=== PATIENT | male | born 1940 | race Caucasian/White ===

== ENCOUNTER → 2016-11-22 | Outpatient (CLI) | payer OTHER ==
[~2016-11-22] MED LIST: AMLO-110 PO; ASPCH81X PO; CHOL100010 PO; FAMO40TA6 PO; FINA5TAB PO; GABA-113 PO; GLCSR500 PO; INDA1TAB3 PO; LEVO25TA5 PO; MELO7.5T5 PO; MOME50SP5 NAE; MONT1TAB3 PO; MULT-506 PO; NEBI20TA2 PO; NXM/40 PO; TAMS0.4C38 PO
[2016-11-22 12:22] LABS: BASO % 0.5 %; BASO ABS # 0.03 K/uL (0-0.2); COMPLETE YES; EOS % 4.1 %; HEMATOCRIT 43.2 % (42-52); IG% 0.2 %; LYMPH % 24.4 %; LYMPH ABS # 1.59 K/uL (1.2-3.4); MEAN CORPUSCULAR HEMOGLOBIN 30.4 pg (25-34); MEAN CORPUSCULAR HGB CONC 33.8 g/dl (32-36); MEAN PLATELET VOLUME 12.3 fL (7.4-10.4); MONO % 10.3 %; NEUT % 60.5 %; PLATELET COUNT 216 K/uL (130-400); WHITE BLOOD COUNT 6.51 K/uL (4.8-10.8)
[2016-11-22 12:39] LABS: ESTIMATED AVERAGE GLUCOSE 146 mg/dl; HA1C FLAG Normal (Normal)
[2016-11-22 13:02] LABS: ALT/SGPT 24 U/L (12-78); AST/SGOT 16 U/L (15-37); BLOOD UREA NITROGEN 17 mg/dl (7-18); BUN/CREATININE RATIO 18.4 (10-20); CALCIUM 8.8 mg/dl (8.5-10.1); CARBON DIOXIDE 32 mmol/L (21-32); CHLORIDE 105 mmol/L (98-107); GLUCOSE 137 mg/dl (70-99); POTASSIUM 3.8 mmol/L (3.5-5.1); SODIUM 141 mmol/L (136-145)
[2016-11-22 13:11] LABS: ALB/GLOB RATIO 1.1 (0.9-2); ALKALINE PHOSPHATASE 55 U/L (45-117); CHOLESTEROL 151 mg/dl (0-200); CHOLESTEROL/HDL RATIO 3.3; HDL CHOLESTEROL 46 mg/dl; LDL CHOLESTEROL CALCULATED 86 mg/dl; PROSTATE SPECIFIC ANTIGEN 0.316 ng/ml (0.000-4.000); TRIGLYCERIDES 95 mg/dl (0-150); VERY LOW DENSITY LIPOPROT CALC 19 mg/dl
--- NOTE | 2016-11-26 09:54 | CODING QUERY MEDICAL NECESSITY ---
SUPPORTING DIAGNOSIS NEEDED A supporting diagnosis is required for the test/procedure performed on this patient in order for us to be reimbursed by the patient's insurance. Please provide a supporting diagnosis for the following test/procedure listed below next to the test name along with your signature. *If there is no additional diagnosis for this patient that would support the following test/procedure please document that below next to the test/procedure. Test(s)/Procedure(s) that require a supporting diagnosis: DOS 11/22 * PSA DIAGNOSIS: Provider Signature: Date: Thank you Jessy Ludwig Health Information Management Once completed, please kindly fax back to [phone] For questions please call [phone]
== END | disposition home or self-care (01) ==
LOC: C.LABPBG 08:36
PROVIDERS: ATTEND Internal Medicine
DX: K44.9 Diaphragmatic hernia without obstruction or gangrene (principal); E11.9 Type 2 diabetes mellitus without complications; E03.9 Hypothyroidism, unspecified; N40.1 Benign prostatic hyperplasia with lower urinary tract symptoms

== ENCOUNTER → 2017-05-23 | Outpatient (CLI) | payer OTHER ==
[2017-05-23 12:21] LABS: ALT/SGPT 20 U/L (12-78); BLOOD UREA NITROGEN 16 mg/dl (7-18); BUN/CREATININE RATIO 16.8 (10-20); CALCIUM 9.5 mg/dl (8.5-10.1); CARBON DIOXIDE 28 mmol/L (21-32); CHLORIDE 103 mmol/L (98-107); CREATININE 0.97 mg/dl (0.60-1.40); GLUCOSE 133 mg/dl (70-99); POTASSIUM 3.9 mmol/L (3.5-5.1); SODIUM 139 mmol/L (136-145)
[2017-05-23 12:31] LABS: ALB/GLOB RATIO 1.1 (0.9-2); ALKALINE PHOSPHATASE 54 U/L (45-117); AST/SGOT 15 U/L (15-37)
[2017-05-23 12:41] LABS: ESTIMATED AVERAGE GLUCOSE 140 mg/dl; HA1C FLAG Normal (Normal)
== END | disposition home or self-care (01) ==
LOC: C.LABPBG 08:46
PROVIDERS: ATTEND Internal Medicine
DX: I10 Essential (primary) hypertension (principal); E03.9 Hypothyroidism, unspecified; E11.9 Type 2 diabetes mellitus without complications

== ENCOUNTER → 2017-08-04 | Outpatient (CLI) | payer OTHER ==
--- NOTE | 2017-08-04 09:24 | DIAGNOSTIC IMAGING REPORT ---
ABDOMEN COMPLETE (US) HISTORY: Pain. Nausea. ABD BLOATING,GAS. COMPARISON: None. FINDINGS: Pancreas: The pancreas demonstrates a normal echotexture. Liver: Fatty infiltration Gallbladder: No gallbladder wall thickening. No gallstones. CBD: 7 mm Kidneys: Right kidney is negative for hydronephrosis. 4 cm mid pole cyst. Left kidney demonstrates a maximum dimension 12 cm. No evidence for hydronephrosis. Spleen: Normal in size. Aorta: Normal in caliber. IVC: Patent. IMPRESSION: 1. Mild fatty infiltration of liver. 2. 4 cm mid pole right renal cyst. 3. Otherwise normal study. The above report was generated using voice recognition software. It may contain grammatical, syntax or spelling errors. Electronically signed by: Fadi Gonzalez M.D. 08/04/2017 9:23 AM Dictated Date/Time: 08/04/2017 9:21 AM
== END | disposition home or self-care (01) ==
LOC: C.ULTRBC 08:22
PROVIDERS: ATTEND Internal Medicine
DX: R14.0 Abdominal distension (gaseous) (principal); R14.3 Flatulence; N28.1 Cyst of kidney, acquired; K76.0 Fatty (change of) liver, not elsewhere classified

== ENCOUNTER → 2017-12-12 | Outpatient (CLI) | payer OTHER ==
[2017-12-12 12:32] LABS: BASO % 0.5 %; BASO ABS # 0.03 K/uL (0-0.2); EOS % 3.4 %; HEMATOCRIT 43.9 % (42-52); HEMOGLOBIN 15.3 g/dL (14.0-18.0); IG# 0.01 K/uL (0.00-0.02); LYMPH % 31.4 %; LYMPH ABS # 1.86 K/uL (1.2-3.4); MEAN CELL VOLUME 88.5 fL (80-100); MEAN CORPUSCULAR HEMOGLOBIN 30.8 pg (25-34); MEAN CORPUSCULAR HGB CONC 34.9 g/dl (32-36); MEAN PLATELET VOLUME 11.8 fL (7.4-10.4); MONO % 9.6 %; MONO ABS # 0.57 K/uL (0.11-0.59); NEUT % 54.9 %; NEUT ABS # 3.25 K/uL (1.4-6.5); PLATELET COUNT 194 K/uL (130-400); RED CELL DISTRIBUTION WIDTH CV 13.5 % (11.5-14.5); RED CELL DISTRIBUTION WIDTH SD 44.2 fL (36.4-46.3); WHITE BLOOD COUNT 5.92 K/uL (4.8-10.8)
[2017-12-12 17:21] LABS: ALT/SGPT 29 U/L (12-78); AST/SGOT 21 U/L (15-37); BLOOD UREA NITROGEN 13 mg/dl (7-18); CARBON DIOXIDE 28 mmol/L (21-32); CHOLESTEROL 179 mg/dl (0-200); CREATININE 0.92 mg/dl (0.60-1.40); GLUCOSE 124 mg/dl (70-99); POTASSIUM 3.5 mmol/L (3.5-5.1); SODIUM 136 mmol/L (136-145)
[2017-12-12 17:31] LABS: ALKALINE PHOSPHATASE 58 U/L (45-117); LDL CHOLESTEROL CALCULATED 111 mg/dl; TOTAL PROTEIN 7.7 gm/dl (6.4-8.2)
[2017-12-13 06:31] LABS: HEMOGLOBIN A1C 6.8 % (4.5-5.6)
== END | disposition home or self-care (01) ==
LOC: C.LABPBG 11:15
PROVIDERS: ATTEND Internal Medicine
DX: I10 Essential (primary) hypertension (principal); E11.9 Type 2 diabetes mellitus without complications; E03.9 Hypothyroidism, unspecified

== ENCOUNTER → 2018-03-13 | Outpatient (CLI) | payer OTHER ==
[~2018-03-13] MED LIST changes: -AMLO-110 PO; +AMLO5TAB3 PO
[2018-03-13 17:54] LABS: BASO % 0.2 %; BASO ABS # 0.02 K/uL (0-0.2); EOS % 1.3 %; EOS ABS # 0.11 K/uL (0-0.5); HEMATOCRIT 40.9 % (42-52); HEMOGLOBIN 14.4 g/dL (14.0-18.0); IG# 0.03 K/uL (0.00-0.02); LYMPH % 26.4 %; LYMPH ABS # 2.18 K/uL (1.2-3.4); MEAN CELL VOLUME 88.9 fL (80-100); MEAN CORPUSCULAR HEMOGLOBIN 31.3 pg (25-34); MEAN CORPUSCULAR HGB CONC 35.2 g/dl (32-36); MEAN PLATELET VOLUME 11.7 fL (7.4-10.4); MONO % 10.2 %; MONO ABS # 0.84 K/uL (0.11-0.59); NEUT % 61.5 %; NEUT ABS # 5.07 K/uL (1.4-6.5); PLATELET COUNT 245 K/uL (130-400); RED CELL DISTRIBUTION WIDTH CV 13.6 % (11.5-14.5); RED CELL DISTRIBUTION WIDTH SD 44.1 fL (36.4-46.3); WHITE BLOOD COUNT 8.25 K/uL (4.8-10.8)
[2018-03-14 06:00] LABS: HEMOGLOBIN A1C 6.8 % (4.5-5.6)
--- NOTE | 2018-03-27 08:04 | CODING QUERY NO DIAGNOSIS ---
TREATMENT RENDERED WITHOUT A DIAGNOSIS To promote full compliance with coding requirements relating to patient care, physician participation is requested in all cases of agri business agent uncertainty. Please assist us with providing a diagnosis/symptom for the test(s) below: A diagnosis/symptom was not documented on your Order. A valid diagnosis/symptom is required to bill all insurances. Please remember that we are unable to code a diagnosis of rule out, probable, possible, questionable, or suspected. Tests that require a diagnosis: DOS: 03/13/18 * CBC W/ AUTO DIFF DIAGNOSIS: * IMMUNOGLOBULIN G,A,M DIAGNOSIS: * IMMUNOGLOBULIN D DIAGNOSIS: * IGG SUBCLASSES DIAGNOSIS: Provider Signature: Date: Thank you Melissa Dillon Health Information Management Once completed, please kindly fax back to [phone] For questions please call [phone]
== END | disposition home or self-care (01) ==
LOC: C.LABPBG 14:52
PROVIDERS: ATTEND Physician Assistant
DX: E11.9 Type 2 diabetes mellitus without complications (principal)

== ENCOUNTER 2023-06-07 11:40 | Observation (INO) ==
[~2023-06-07 11:40] MED LIST changes: -AMLO5TAB3 PO; -ASPCH81X PO; -CHOL100010 PO; -FAMO40TA6 PO; -FINA5TAB PO; -GABA-113 PO; -GLCSR500 PO; -INDA1TAB3 PO; -LEVO25TA5 PO; +LIDOCAINE 1% LOCAL 20 ML VIAL ONE; -MELO7.5T5 PO; -MOME50SP5 NAE; -MONT1TAB3 PO; -MULT-506 PO; -NEBI20TA2 PO; -NXM/40 PO; -TAMS0.4C38 PO; +VANCOMYCIN HCL 1000MG/20ML VIAL ONE; +WATER, STERILE FOR INJ 10 ML VIAL ONE
--- NOTE | 2023-06-07 12:35 | History & Physical Bridge Note ---
Date of Service June 07, 2023 History & Physical Bridge Note I have examined the patient, reviewed the History & Physical and in the interval since the performance of the History & Physical I have noted the following changes of clinical significance: no changes noted. I reviewed the indications, procedure, risks and alternatives with the patient, and answered all questions. Patient understands and agrees to the procedure. Consent obtained. I also reviewed the risks and use of sedation, patient understands and consent obtained.
[2023-06-07] MEDS ORDERED: CLINDAMYCIN 600 MG/D5W 50 ML BAG IV ONE (12:38)
[2023-06-07] MEDS ORDERED: MIDAZOLAM HCL 5 MG/ML 1 ML VIAL ONE (12:39)
[2023-06-07] MEDS ORDERED: fentaNYL citrate PF 100 MCG/2 ML VIAL ONE (12:39)
--- NOTE | 2023-06-07 12:46 | Pre Anesthesia Assessment ---
Date of Service June 07, 2023 Pre Sedation Assessment Vital Signs Pulse Resp BP Pulse Ox O2 Del Method 06/07/23 11:51 83 18 119/79 96 Room Air Cardiovascular RRR, no murmur, no edema Respiratory normal respiratory effort, lungs clear to auscultation Pre-Sedation Airway Assessment Smoking Status: Never smoker Hx Sleep Apnea: No Short, Thick Neck: No Thyromental Distance: > or= 3.5 Finger Breadths Oral Cavity: + Dentures Mallampati Class: II ASA: ASA3 NPO Status Date of Last Intake of Fluids: 06/06/23 Time of Last Intake of Fluids: 23:30 Date of Last Intake of Solid Food: 06/06/23 Time of Last Intake of Solid Foods: 23:30 Procedure Planning Contraindications for Sedation: none Current Medications Reviewed: Yes Notes The planned sedation has been discussed with the patient. Informed Consent was obtained. I have identified the patient, determined the appropriateness of sedation and have assessed the patient immediately prior to the procedure. All medicine(s) and interventions are by my order.
[2023-06-07] MEDS ORDERED: ACETAMINOPHEN 325 MG TAB PO PRN (14:39)
[2023-06-07] MEDS ORDERED: KETOROLAC TROMETHAMINE 10 MG TABLET PO PRN (14:39)
--- NOTE | 2023-06-07 14:39 | Electrophysiology Report ---
Date of Service June 07, 2023 Electrophysiology Procedure Electrophysiology Procedure Report Preoperative diagnosis: Atrial fibrillation, cardiomyopathy, congestive heart failure Postoperative diagnosis: Same Procedure: Left subclavian venogram Ventricular defibrillator lead implantation Coronary sinus angiography Left ventricular lead implantation Biventricular ICD implantation Surgeon: Luis Alberto Torres MD Estimated blood loss: 50 cc Complications: None Disposition: Cardiology recovery Procedure details: After obtaining informed consent for the procedure, the patient was brought to the laboratory and prepped and draped in the standard sterile manner. Dye was injected the left arm IV site to opacify the left subclavian vein. The subclavian vein was identified and found to be free of obstruction. The left prepectoral region was anesthetized with 1% lidocaine local anesthetic and left axillary venipuncture was performed by percutaneous technique and a guidewire placed through the left subclavian vein into the superior vena cava. The area was further infiltrated with 1% lidocaine local anesthetic and a 5 cm incision was made parallel to the left clavicle and 2 cm below it and carried down to the anterior pectoralis fascia. An ICD pocket was formed by blunt dissection anterior to the pectoralis fascia and a vancomycin soaked sponge was placed in the pocket. A 10.5 Y[place] Medtronic lead introducer was placed over the guidewire into the left subclavian vein, the dilator and guidewire were removed and a bipolar active fixation steroid tipped ventricular ICD lead was advanced through the i ntroducer into the superior vena cava. A guidewire was placed through the introducer and the introducer was stripped from the lead and guidewire. Using a curved stylette the ventricular lead was advanced through the right ventricular outflow tract into the pulmonary artery and then using a straight stylette was positioned in the right ventricular apex. The screw was extended fixing the lead in position. Pacing and sensing thresholds were evaluated in bipolar configuration and are recorded on the implant data sheet. Diaphragmatic pacing was evaluated at full bipolar output as indicated on the data sheet. An atrial lead was not implanted due to permanent atrial fibrillation. A Carmel coronary sinus sheath was advanced to position in the right atrium. The curved obturator was placed through the sheath and using x-ray dye and an inner cannula the os of the coronary sinus was identified. A guidewire was placed through the introducer into the coronary sinus and the Carmel sheath was adva nced into the coronary sinus. A balloon occlusion catheter was advanced through this sheath into the coronary sinus, the balloon was inflated and dye was injected in various projections to obtain a coronary sinus angiogram. A good vessel was identified and a 0.014 inch guidewire was advanced into this vessel. A quadripolar coronary sinus catheter was advanced over the guidewire into good distal position. The left ventricular pacing threshold was evaluated in various configurations, as recorded on the implant data sheet. Diaphragmatic pacing was evaluated at full output, as indicated on the data sheet. Once this lead was in position the introducer system was removed from the lead and the lead was attached to the anterior pectoral fascia using 2 sutures of 2-0 silk around the lead collar. Two sutures of 2-0 silk were placed around the ventricular lead collar as well. The vancomycin-soaked sponge was removed from the pocket, hemostasis was obtained, the ICD was attached to the leads and placed in the pocket with the leads coiled beneath it. The incision was closed with a running double subcutaneous closure of 3-0 Vicryl absorbable suture, followed by running subcuticular skin closure of 4-0 Vicryl absorbable suture. Bacitracin ointment was placed on the incision and a pressure dressing applied. [facility] [place] Electrophysiology codes Indication for Procedure (1) Cardiomyopathy: Pacing Procedure 1: Pacin BiV electrode w/Pacer / ICD implant, add on code ICD Procedure 1: ICD: 46091 Single or dual ICD implant, chronic leads Miscellaneous Procedures Procedure 1: EP Miscellaneous: 93130 Contrast injection for venography Procedure 2: EP Miscellaneous: 85432-69 Vengraphy, extremity Procedure 3: EP Miscellaneous: 38011-35 Venography, CS supevsion/interp PG Moderate Sedation Codes Moderate Sedation Codes Procedure 1: Sedation/Anesthesia: 41532 Mod Sedation by the same physician;Init15 Min Child Age 5 & Up Procedure 2: Sedation/Anesthesia: 77849 Mod Sedation by the same physician; Ea [id number] Minutes
--- NOTE | 2023-06-07 16:05 | Electrocardiogram Report ---
Test Reason : Blood Pressure : / mmHG Vent. Rate : 077 BPM Atrial Rate : 087 BPM P-R Int : 000 ms QRS Dur : 192 ms QT Int : 496 ms P-R-T Axes : 000 -61 023 degrees QTc Int : 561 ms Ventricular-paced rhythm Premature ventricular complexes Abnormal ECG When compared with ECG of 08-APR-2023 10:13, (unconfirmed) Electronic ventricular pacemaker now present Confirmed by Channing Whipple ([id number]) on 06/07/2023 4:04:58 PM Referred By: Mamadou Estrada Confirmed By:Channing Whipple
[2023-06-07] MEDS ORDERED: INFLUENZA VACCINE HIGH-DOSE (HD-IIV4) PF 65+ 0.7mL SYR IM ONE (18:42)
[2023-06-07] MEDS ORDERED: GLUCOSE 10 TAB/TUBE PO PRN (19:45)
[2023-06-07] MEDS ORDERED: DEXTROSE 50% 50 ML SYRINGE IV PRN (19:45)
[2023-06-07] MEDS ORDERED: GLUCAGON FOR INJ 1 MG VIAL IM PRN (19:45)
[2023-06-07] MEDS ORDERED: CARBOHYDRATES FOR HYPOGLYCEMIA PO PRN (19:45)
[2023-06-07] MEDS ORDERED: GLUCOSE 40% GEL 15 GM TUBE PO PRN (19:45)
[2023-06-07] MEDS: carvediloL 12.5 MG TAB PO SCH (20:05)
[2023-06-07] MEDS: SPIRONOLACTONE 25 MG TAB PO SCH (20:06)
[2023-06-07] MEDS: VALSARTAN/SACUBITRIL 51/49 MG TAB PO SCH (20:06)
[2023-06-07] MEDS ORDERED: CHOLECALCIFEROL 1,000 UNITS 25 MCG TAB PO SCH (21:00)
[2023-06-07] MEDS ORDERED: MONTELUKAST SODIUM 10 MG TABLET PO SCH (21:00)
[2023-06-07] MEDS ORDERED: GABAPENTIN 400 MG CAP PO SCH (21:00)
[2023-06-07] MEDS ORDERED: NON-FORMULARY MEDICATION (Lysine 1,000 mg Tablet) PO SCH (21:00)
[2023-06-07] MEDS ORDERED: TAMSULOSIN HCL 0.4 MG CAP PO SCH (21:00)
[2023-06-07] MEDS: INSULIN ASPART PER UNIT CHARGE SC SCH (21:54)
[2023-06-08] MEDS ORDERED: LEVOTHYROXINE SODIUM 50 MCG TABLET PO SCH (06:30)
[2023-06-08] MEDS: INSULIN ASPART PER UNIT CHARGE SC SCH (08:13)
[2023-06-08] MEDS: SPIRONOLACTONE 25 MG TAB PO SCH (08:15)
[2023-06-08] MEDS: carvediloL 12.5 MG TAB PO SCH (08:15)
[2023-06-08] MEDS: VALSARTAN/SACUBITRIL 51/49 MG TAB PO SCH (08:16)
[2023-06-08] MEDS ORDERED: ATORVASTATIN 40 MG TAB PO SCH (09:00)
[2023-06-08] MEDS ORDERED: GABAPENTIN 100 MG CAP PO SCH (09:00)
[2023-06-08] MEDS ORDERED: FINASTERIDE 5 MG TAB PO SCH (09:00)
[2023-06-08] MEDS ORDERED: MULTIVITAMIN TAB PO SCH (09:00)
[2023-06-08] MEDS ORDERED: ASPIRIN 81 MG ECTAB PO SCH (09:00)
[2023-06-08] MEDS ORDERED: BUMETANIDE 1 MG TAB PO SCH (09:00)
[2023-06-08] MEDS ORDERED: SITagliptin PHOSPHATE 100 MG TAB PO SCH (09:00)
[2023-06-08] MEDS ORDERED: POTASSIUM CHLORIDE CRTAB 20 MEQ TABCR PO SCH (09:00)
[2023-06-08] MEDS ORDERED: OMEGA-3 (PURIFIED FISH OIL) 1 GM CAP PO SCH (09:00)
[2023-06-08] MEDS ORDERED: EMPAGLIFLOZIN 10 MG TAB PO SCH (09:00)
--- NOTE | 2023-06-08 09:36 | Cardiology Progress Note ---
Date of Service June 08, 2023 Assessment & Plan (1) Status post implantation of automatic cardioverter/defibrillator (AICD): Plan Postop day #1: The ICD is functioning well, the site looks good and leads are in good position. He is stable for discharge today. Admission and Anticipated Discharge Date Admission Date: June 07, 2023 Subjective He is feeling well today, he has minimal incisional discomfort. No chest discomfort and no shortness of breath. Physical Exam Physical Exam: The incision is clean and dry, no ecchymosis or swelling. Lungs are clear Cardiac rhythm is regular with no rub Results & Data Vital Signs (Past 12 Hours) Vital Signs Temp Pulse Resp BP Pulse Ox O2 Del Method 06/08/23 07:25 37.0 C 75 18 124/67 95 Room Air 06/08/23 03:00 36.9 C 68 17 105/67 96 Room Air 06/08/23 00:04 36.9 C 71 14 121/77 98 Room Air Diagnostic Findings Postop ECG: Atrial fibrillation with appropriate ventricular pacing and PVCs. Telemetry: Atrial fibrillation, frequent ventricular pacing, frequent premature ventricular beats, normal operation. Chest x-ray: Leads are in good position, no pneumothorax Pacemaker evaluation: Stable pacing and sensing characteristics PG Care Time/CCT Total # of Minutes Spent Total Time Spent with Patient: Total time spent is greater than 50% in coordination of care (as documented) at patient's floor/unit and/or counseling patient: Coding Level of Care Code 32003 Post Operative Follow-Up Diagnoses Status post implantation of automatic cardioverter/defibrillator (AICD) Z95.810 CPT Codes Implantable Defib Multi lead programming - 81467 ([id number])
--- NOTE | 2023-06-08 10:02 | XRay Report ---
XR chest 2V PA/lateral CLINICAL HISTORY: Pacemaker insertion. COMPARISON STUDY: Chest CT July 11, 2018. Chest radiograph August 26, 2022. FINDINGS: There is no pneumothorax following placement of a biventricular left subclavian pacer/AICD. Leads are intact. One lead projects over the right ventricle. The other lead extends through the cor onary sinus. There is stable cardiomegaly without evidence for pulmonary edema. There is no pleural e ffusion. Linear right basilar densities favor atelectasis. No consolidation. 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 ACT 112: Negative or not required by law. Electronically signed by: Isra Nava M.D. 06/08/2023 10:01 AM
[2023-06-08] MEDS ORDERED: GABAPENTIN 300 MG CAP PO SCH (14:00)
--- NOTE | 2023-06-21 08:33 | Discharge Summary ---
Date of Service June 21, 2023 Admission HPI Per Admitting Provider This is an 82-year-old gentleman who has a history of diabetes mellitus, hypertension but no known heart disease until identification of atrial fibrillation in 2019. He was being evaluated for dizziness which had been quite bothersome to him and a number of tests were ordered including an event monitor. On the event monitor he was observed to have paroxysmal atrial fibrillation. Of note he did not have dizziness at the time of the atrial fibrillation and in fact his dizziness has improved substantially and therefore is not likely related to an arrhythmia. He has never had palpitations, he has never had strokelike symptoms. He does have a history of hypothyroidism and is on Synthroid. He does not drink alcohol to any significant extent. He wore a cardiac event monitor from June 16, 2020 through July 15, 2020. For the most part he was in sinus rhythm and sinus bradycardia, without any severe sinus bradycardia and no symptoms of dizziness that I am aware of. He did have an episode of atrial flutter with a controlled heart rate which occurred on June 19, 2020, this was evident at least until June 26, 2020 on several recordings and it may have been of several days duration. With this finding we did add Xarelto as an anticoagulant on August 13, 2020. He was taking aspirin for primary prevention however with addition of anticoagulation we discontinued the aspirin. I also had an echocardiogram done which was performed September 18, 2020 and showed normal left ventricular size and function with mild concentric left ventricular hypertrophy and ejection fraction of 55 to 60%. His left atrium was mildly dilated. There were no significant valvular abnormalities. A carotid Doppler study was done on July 01, 2020 and does not show significant stenosis (less than 50% in both internal and both external carotids bilaterally). Intimal thickening was present without plaque. He was doing well on this regimen until mid July 2022 when he was doing some work on his ceiling in a [employer]abapt[employer] when he began to develop chest discomfort. Evaluation August 26, 2022 showed atrial fibrillation with a controlled heart rate and with the chest discomfort he was referred to the emergency room. There were no acute acute changes and he was sent home from the emergency room and referred to cardiology. The chest discomfort did not seem to be ischemic based on character and testing, however an echocardiogram done September 27, 2022 (which was scheduled as a stress echo but the baseline echocardiogram was abnormal so the stress was not done) showed a mildly dilated left ventricle with severe left ventricular dysfunction and ejection fraction of 20 to 25%. A cardiac catheterization was therefore performed on October 08, 2022. He was found to have diffuse mild to moderate multivessel coronary artery disease but the cardiomyopathy was felt to be nonischemic. Heart failure medications were initiated using metoprolol succinate and Entresto. Spironolactone and Jardiance have also been added. Echocardiography done February 02, 2023 showed continued severe left ventricular dysfunction with global hypokinesis and ejection fraction of 20 to 25%, although this was done soon after titration of medications. He did see Dr. Hunter for a second opinion regarding his cardiomyopathy who discussed the possibility of ICD implantation and potentially treatment of his a trial fibrillation. Patient now returns here for device implantation Admission Exam Per Admitting Provider Constitutional: Alert, cooperative and in no distress. HEENT: Unremarkable Neck: No jugular venous distention, carotid pulses are irregular but otherwise normal and equal bilaterally without bruits. Pulmonary: Clear to auscultation bilaterally. Cardiac: Irregular rhythm with no murmur, gallop or rub. Abdomen: Soft, nontender with normal bowel sounds. Extremities: No edema. Distal pulses intact. Neurologic: No focal findings. Gait is steady. Skin: No rash, ecchymoses or petechiae. Principal Diagnosis Cardiomyopathy Discharge Exam Constitutional: Alert, cooperative and in no distress. HEENT: Unremarkable Neck: No jugular venous distention, carotid pulses are normal and equal bilaterally without bruits. Pulmonary: Clear to auscultation bilaterally. Cardiac: Regular rhythm with no murmur, gallop or rub. Abdomen: Soft, nontender with normal bowel sounds. Extremities: No edema. Distal pulses intact. Neurologic: No focal findings. Gait is steady. Skin: The device site is healing well without erythema, swelling or tenderness. No rash, ecchymoses or petechiae. Discharge Data Allergies Allergy/AdvReac Type Severity Reaction Status Date / Time omeprazole Allergy Intermediate HIVES AND Verified 06/16/23 08:47 ITCHING Penicillins Allergy Intermediate hives Verified 06/16/23 08:47 sucralfate Allergy Intermediate hives Verified 06/16/23 08:47 Sulfa (Sulfonamide Allergy Intermediate HIVES Verified 06/16/23 08:47 Antibiotics) mold Allergy Mild HAY FEVER Verified 06/16/23 08:47 dutasteride Allergy Unknown rash- Verified 06/16/23 08:47 tolerates name brand Avodart esomeprazole Allergy Unknown rash- Verified 06/16/23 08:47 tolerates name brand Nexium grass pollen Allergy Unknown Unknown Verified 06/16/23 08:47 grass pollen-perennial rye, Allergy Unknown HAY FEVER Verified 06/16/23 08:47 standar house dust Allergy Unknown Unknown Verified 06/16/23 08:47 house dust mite Allergy Unknown Unknown Verified 06/16/23 08:47 tree and shrub pollen Allergy Unknown Unknown Verified 06/16/23 08:47 pantoprazole [From Protonix] AdvReac Intermediate Hives Verified 06/16/23 08:47 Procedures Performed Operation Date: 06/07/23 13:00 Actual Procedures s Venogram, Unilateral - Luis Alberto Torres MD p ICD Insertion Single or Dual - Luis Alberto Torres MD s Lead LV (No Priopr Implant) - Luis Alberto Torres MD Ordered Studies 06/07/23 07:15 EP Lab Images for PACS ONCE Hospital Course (1) Status post implantation of automatic cardioverter/defibrillator (AICD): Plan Postop day #1: The ICD is functioning well, the site looks good and leads are in good position. He is stable for discharge. Total Time Total Time Spent Total Time Spent (In Minutes): 30 Discharge Plan Discharge Items Patient Disposition: Home - Self-Care Reason For Visit: Atrial fibrillation with slow ventricular response Discharge Diagnosis: Biventricular pacemaker implantation Activity: Per Instructions section Lifting: Gradually increase as tolerated Bathing: Keep incision dry Exercise/Sports: Gradually increase as tolerated Driving/Machine Use: No limitations Non-emergency contact: [employer] Call non-emergency contact if: you have a fever, your wound has increased red ness, your wound has increased drainage and your wound pain has increased Follow-up/Referrals: Noe Ruiz CRNP [Primary Care Provider] - 06/16/23 10:20 am (Follow up scheduled on 06/16/23 @ 10:20) Luis Alberto Torres MD [Physician] - 06/09/23 11:00 am (Keep follow up scheduled on 06/09/23 @ 11am) Diet: Heart Healthy Addtl Attending Provider Instructions: ACTIVITY RECOMMENDATIONS: * Do not raise affected arm over head for 2 weeks. SPECIAL CARE INSTRUCTIONS: * If bleeding occurs, apply direct pressure to area for 5 minutes. * Call your doctor if you have severe pain, fever, drainage or bleeding at site. * Keep dressing on and dry for 48 hours then remove. * Keep any scheduled doctor's appointment. * Implant Card - hand held device with website information given. SKIN IRRITATION: * You may experience some redness and/or swelling in the area where radiation was administered. If any skin irritation occurs, please contact your family physician. FOLLOW UP VISIT: Keep any scheduled doctor appointments. Pending Studies at Discharge: No Stand-Alone Forms: My [facility] [place], Smoking Cessation Medications and DC Order Prescriptions: Continued Xarelto 20 mg tablet 20 mg PO QPM Qty: 90 3RF Rx Instructions: must administer with evening meal metformin 500 mg tablet extended release 24 hr 500 mg PO DAILY Qty: 30 2RF famotidine 40 mg tablet See Rx Instructions .ROUTE .COMPLEX Qty: 90 3RF Dose Instruction: TAKE 1 TABLET BY MOUTH EVERY DAY Rx Instructions: TAKE 1 TABLET BY MOUTH EVERY DAY dexlansoprazole [Dexilant] 30 mg capsule,biphase delayed releas See Rx Instructions .ROUTE .COMPLEX Qty: 90 3RF Dose Instruction: TAKE 1 CAPSULE BY MOUTH EVERY MORNING Rx Instructions: TAKE 1 CAPSULE BY MOUTH EVERY MORNING gabapentin 100 mg capsule 100 mg PO DAILY Qty: 90 3RF Rx Instructions: take 1 tab in the am gabapentin 300 mg capsule 300 mg PO DAILY Qty: 90 3RF Rx Instructions: take in the afternoon bumetanide 1 mg tablet 1 mg PO DAILY Qty: 90 3RF potassium chloride 20 mEq tablet extended release 20 meq PO DAILY Qty: 90 3RF levothyroxine 50 mcg tablet 50 mcg PO DAILY Qty: 30 2RF carvedilol 12.5 mg tablet 12.5 mg PO BID Qty: 180 3RF Rx Instructions: must administer with a meal/food Entresto 49-51 mg tablet 0.5 tab PO BID omega-3 fatty acids [Fish Oil Concentrate] 1,000 mg capsule 1,000 mg PO DAILY atorvastatin 40 mg tablet 40 mg PO DAILY Qty: 90 3RF aspirin [Jamila Low Dose Aspirin] 81 mg tablet,delayed release (DR/EC) 81 mg PO DAILY Qty: 90 3RF Jardiance 10 mg tablet 10 mg PO DAILY Qty: 90 3RF diclofenac sodium 75 mg tablet,delayed release (DR/EC) 75 mg PO QAM Qty: 30 multivitamin Tablet 1 tab PO QAM montelukast 10 mg Tablet 10 mg PO PM lysine 1,000 mg Tablet 1,000 mg PO BID cholecalciferol (vitamin D3) [Vitamin D3] 1,000 unit Tablet 1 tab PO QPM gabapentin 400 mg capsule 400 mg PO HS Januvia 100 mg tablet 100 mg PO QAM alogliptin 25 mg tablet 25 mg PO QAM No Action spironolactone 25 mg tablet 25 mg PO DAILY Qty: 90 3RF tamsulosin 0.4 mg capsule 0.4 mg PO HS Qty: 90 3RF finasteride 5 mg tablet 5 mg PO DAILY Qty: 90 3RF Discharge Orders: Discharge Order (Routine); Ordered 06/08/23 Ordered By: Luis Alberto Goel/Other Patient Handouts: Pacemaker Biventricular & ICD, Pacemakers, Living with a Pacemaker, Pacemaker Implant Dc Admission Data Admit Date/Time: 06/07/23 14:09 Attending Provider: Luis Alberto Torres Admit Provider: Luis Alberto Torres Primary Care Provider: Noe Ruiz Other Interventions: Discharge Summary Assessment (RN) Last Done: 06/08/23 10:56 Coding Level of Care Code 96325 Post Operative Follow-Up Diagnoses Status post implantation of automatic cardioverter/defibrillator (AICD) Z95.810
== END 2023-06-08 11:46 | disposition home or self-care (01) | DRG 277 ==
LOC: EP 11:40 → INTOOBSV 14:09 → 2S 14:09
PROC: EPB.ICD (2023-06-07 13:00)

== ENCOUNTER 2023-11-19 22:55 | Inpatient (IN) ==
[2023-11-19] MEDS: ALBUTEROL 0.083% NEBU SOLN 3 ML VIAL NEB STA (23:10)
[2023-11-19] MEDS: ALBUTEROL 0.083% NEBU SOLN 3 ML VIAL ONE (23:10)
[2023-11-19] MEDS: FUROSEMIDE 40 MG/4 ML VIAL IV ONE (23:18)
--- NOTE | 2023-11-19 23:19 | Emergency Department Note ---
Impression & Plan Pulmonary edema, Pneumonia, Hypoxia Admit to the [facility] ED Provider Note NAME: DREW MILLER AGE: 83 SEX: Male INFORMANT: Patient ED PROVIDER(S): Maria Fernanda Hernandez DO CHIEF COMPLAINT: Shortness of breath PLAN: Disposition: Admit to the [facility] MEDICAL DECISION MAKING: This is an 83-year-old male patient presents to the emergency department with worsening shortness of breath throughout the day today. The patient's had been trying to convince him all day to come to the hospital for an increasing respiratory difficulties and chest congestion. On presentation to the emergency department, the patient's O2 saturation was 74% on a nonrebreather. Patient had received 2 DuoNeb treatments from EMS for significant wheezing. Chest x-ray here in the emergency department showed significant pulmonary edema and right lower lobe opacities. Laboratory studies revealed negative upper respiratory bio fire testing. Negative troponin. BNP was 838. White blood cell count was 18.5. H&H were stable. Glucose was 297. Lactate was 2.2. Patient was given a dose of IV Lasix for concern for congestive heart failure. ABG revealed a pH of 7.2, pCO2 of 47, pO2 of 124, and bicarb was 20. This was consistent with a significant respiratory acidosis. Patient was placed on BiPAP which allowed the patient to breathe much more comfortably and O2 saturations came up nicely. Patient received an additional albuterol neb through the BiPAP circuitry. Patient was dosed with IV Levaquin for presumed pneumonia. Care/management discussed with: environmental programs manager and the [facility] Triage Nursing notes: Reviewed and agree with them. Vital Signs: reviewed and remarkable for hypoxia Additional History obtained from: EMS Differential Diagnosis: Congestive heart failure, pneumonia, tachycardic URI, pneumothorax Diagnostics, independently interpreted by me: ECG: A-fib at a rate of 96 with a poor baseline. No obvious ST segment elevation to suggest ischemia. Cardiac Monitoring: Paced rhythm at a rate of 76 Imaging studies: Portable chest x-ray: As per my independent interpretation- pulmonary edema and right lower lobe opacity HPI: 83 year old Male arrives for evaluation of respiratory distress. Patient had worsening shortness of breath throughout the day today and chest congestion. He describes chest tightness PAST MEDICAL HISTORY: See Below, PAST SURGICAL HISTORY: See Below, SOCIAL HISTORY: See Below, HOME MEDICATIONS: See list ALLERGIES: See list VITALS: See Below PHYSICAL EXAMINATION: HEENT: Head - normocephalic and atraumatic. Pupils are equal, round, and reactive to light. Extraocular eye muscles are intact, and sclera are anicteric. Nose - moist nasal mucosa without discharge. Mouth - moist buccal mucosa. Oropharynx is nonerythematous and there is no tonsillar exudate or edema noted. Neck: Supple; JVD or cervical lymphadenopathy Heart: Regular rate and rhythm. There is a normal S1 and S2 with no murmurs, clicks, or gallops appreciated. Lungs: Rales at both bases with inspiratory and expiratory wheezes in all lung tidwell Abdomen: Soft, completely nontender, nondistended, with good bowel sounds. There are no palpable pulsatile masses or hepatosplenomegaly. There is no guarding, rigidity, or rebound noted. Extremities: Trace lower extremity edema Skin: warm and dry with good turgor and no rashes. Emergency department treatment: school lunch monitor, BiPAP, albuterol neb, IV Lasix, IV Levaquin Emergency department course: Patient was evaluated in room B8. A complete history and physical was performed. Patient was placed on BiPAP. Patient was given albuterol neb. An order was placed for continuous cardiac monitoring. The patient was in a paced rhythm at a rate of 76. A twelve-lead EKG was obtained as described above. Portable chest x-ray was performed. An ABG was obtained. I discussed the case with the [facility] Hospitalist and they will evaluate for further inpatient care. I have personally spent greater than 65 minutes of critical care time in the direct management of this patient. This includes bedside care, interpretation of diagnostic studies, and testing, discussion with consultants, patient, and family members, and other required patient management activities. This 65 minutes is in excess of all separately billable procedures. Past Med/Surg History Medical History (Updated 11/20/23 @ 06:16 by Maria Fernanda Hernandez DO) Acute hypoxic respiratory failure Pneumonia HFrEF (heart failure with reduced ejection fraction) Paroxysmal nocturnal dyspnea Hypervolemia BPH loc w urin obs/LUTS Screening for prostate cancer Colon polyps Arthritis, multiple joint involvement Hyperlipidemia HTN (hypertension) Hypothyroidism Lumbar spinal stenosis Hearing deficit Hx of traumatic fx right foot - surgical repair BPH (benign prostatic hyperplasia) GERD (gastroesophageal reflux disease) Diabetes mellitus, type 2 History of skin cancer lip Chronic back pain with numbness and tingling down right leg Seasonal allergies Surgical History Status post placement of cardiac pacemaker Hx of cardiac catheterization H/O sinus surgery 09/[address] 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 Hx of shoulder replacement right Family History Mother Family history of diabetes mellitus Congestive heart failure Brother Lung cancer Other Hypertension Denies family history of Ovarian cancer Prostate cancer Myocardial infarction Breast cancer Colorectal cancer Social History Smoking Status: Never smoker Tobacco Type: Cigarettes Age Started Using Tobacco: 18; Age Quit Using Tobacco: 40; packs per day: 1; Second Hand Exposure: No; Do You Dip or Chew Tobacco: No; Hx Alcohol Use: No Hx Substance Use: No Preferred Language: Sinhala Communication Ability: Effective Visual Impairment: No Limitations Hearing Ability: Use of Hearing Aid Lean Manufacturing Specialist Required: No Beliefs That Will Affect Care: None marital status: Current Living Situation: Spouse current occupational status: retired How many Children do You have: 5 How many Children do You have Comment: 3 biological and 2 step children Other Information That Helps Us Care for You: No Feels Safe at Home: Yes Safety Concerns: Feels Safe At This Time Diet: regular Diet Comment: regular caffeine: Yes (Coffee x 2-3 per day.) during the past year weight has: remained stable Dental Care, Regularly: Yes Physical Activity Frequency: 3-4 Times per Week Seatbelt Use: always Sunscreen Use: Yes Assistive Devices: None Allergies Allergies Allergy/AdvReac Type Severity Reaction Status Date / Time omeprazole Allergy Intermediate HIVES AND Verified 11/01/23 14:39 ITCHING Penicillins Allergy Intermediate hives Verified 11/01/23 14:39 sucralfate Allergy Intermediate hives Verified 11/01/23 14:39 Sulfa (Sulfonamide Allergy Intermediate HIVES Verified 11/01/23 14:39 Antibiotics) mold Allergy Mild HAY FEVER Verified 11/01/23 14:39 dutasteride Allergy Unknown rash- Verified 11/01/23 14:39 tolerates name brand Avodart esomeprazole Allergy Unknown rash- Verified 11/01/23 14:39 tolerates name brand Nexium grass pollen Allergy Unknown Unknown Verified 11/01/23 14:39 grass pollen-perennial rye, Allergy Unknown HAY FEVER Verified 11/01/23 14:39 standar house dust Allergy Unknown Unknown Verified 11/01/23 14:39 house dust mite Allergy Unknown Unknown Verified 11/01/23 14:39 tree and shrub pollen Allergy Unknown Unknown Verified 11/01/23 14:39 pantoprazole [From Protonix] AdvReac Intermediate Hives Verified 11/01/23 14:39 Home Meds Home Medications Medication Instructions Recorded Confirmed cholecalciferol (vitamin D3) 25 1 tab PO QPM 07/25/18 11/19/23 mcg (1,000 unit) tablet (Vitamin D3) lysine 1,000 mg tablet 1,000 mg PO BID 07/25/18 11/19/23 montelukast 10 mg tablet 10 mg PO PM 07/25/18 11/19/23 multivitamin 1 tab PO QAM 07/25/18 11/19/23 diclofenac sodium 75 mg 75 mg PO QAM #30 tabs 05/31/19 11/19/23 tablet,delayed release omega-3 fatty acids 1,000 mg 1,000 mg PO QAM 11/03/20 11/19/23 capsule (Fish Oil Concentrate) alogliptin 25 mg tablet 25 mg PO QAM 02/18/21 11/19/23 sitagliptin phosphate 100 mg 100 mg PO QAM 02/18/21 11/19/23 tablet (Januvia) sacubitril 49 mg-valsartan 51 mg 0.5 tab PO BID 05/11/23 11/19/23 tablet (Entresto) gabapentin 400 mg capsule 400 mg PO HS 06/07/23 11/19/23 aspirin 81 mg tablet,delayed 81 mg PO QAM 11/19/23 11/19/23 release (Jamila Low Dose Aspirin) bumetanide 1 mg tablet 1 mg PO QAM 11/19/23 11/19/23 dexlansoprazole 30 mg 30 mg PO QAM 03/23/24 03/23/24 capsule,biphase delayed release (Dexilant) empagliflozin 10 mg tablet 10 mg PO QAM 11/19/23 11/19/23 (Jardiance) famotidine 40 mg tablet 40 mg PO QAM 11/19/23 11/19/23 gabapentin 300 mg capsule 300 mg PO .DAILY IN AFTERNOON 11/19/23 11/19/23 isosorbide mononitrate 30 mg 30 mg PO QAM 11/19/23 11/19/23 tablet,extended release 24 hr levothyroxine 50 mcg tablet 50 mcg PO DAILYBB 11/19/23 11/19/23 potassium chloride 20 mEq 20 meq PO QAM 11/19/23 11/19/23 tablet,extended release Previous Rx's Medication Instructions Recorded rivaroxaban 20 mg tablet (Xarelto) 20 mg PO QPM #90 tabs 09/08/21 metformin 500 mg tablet,extended 500 mg PO DAILY #30 tabs 01/29/22 release 24 hr atorvastatin 40 mg tablet 40 mg PO DAILY #90 tabs 11/18/22 carvedilol 12.5 mg tablet 12.5 mg PO BID #180 tabs 04/04/23 finasteride 5 mg tablet 5 mg PO DAILY #90 tabs 06/16/23 tamsulosin 0.4 mg capsule 0.4 mg PO HS #90 caps 06/16/23 spironolactone 25 mg tablet 25 mg PO DAILY #90 tabs 06/20/23 doxycycline hyclate 100 mg tablet 100 mg PO BID 7 days #14 tabs 11/01/23 amiodarone 200 mg tablet 200 mg PO DAILY #90 tabs 11/03/23 Results & Data (ED) Vital Signs Vital Signs - 24 hr 11/19/23 22:59 11/19/23 22:59 11/19/23 23:00 Temperature 36.6 C Temperature Source Rectal Pulse Rate 103 H Pulse Rate from SpO2 Sensor Respiratory Rate 36 H Respiratory Effort / Characteristics Accessory Muscle Use Labored Labored Respiratory Depth Respiratory Pattern Blood Pressure 143/94 H Blood Pressure Mean 110 Pulse Oximetry 65 L 65 L Oxygen Delivery Method Non-rebreather Room Air Oxygen Flow Rate Fraction of Inspired Oxygen Sepsis Recent Fever Within 48 Hours No Sepsis New/Unexplained Change in Mental Status N/A Sepsis Action Taken by Nursing Physician Notified Oxygen Flow Rate - Titration 15 11/19/23 23:11 11/19/23 23:15 11/19/23 23:15 Temperature Temperature Source Pulse Rate 113 H 117 H 95 H Pulse Rate from SpO2 Sensor Respiratory Rate 47 H 41 H Respiratory Effort / Characteristics Spontaneous Labored Respiratory Depth Respiratory Pattern Tachypnea Blood Pressure 105/83 Blood Pressure Mean 90 Pulse Oximetry 100 94 Oxygen Delivery Method BiPAP Oxygen Flow Rate Fraction of Inspired Oxygen 80 Sepsis Recent Fever Within 48 Hours Sepsis New/Unexplained Change in Mental Status Sepsis Action Taken by Nursing Oxygen Flow Rate - Titration 11/19/23 23:30 11/20/23 00:00 11/20/23 00:15 Temperature Temperature Source Pulse Rate 106 H 116 H Pulse Rate from SpO2 Sensor Respiratory Rate 24 24 Respiratory Effort / Characteristics Respiratory Depth Respiratory Pattern Blood Pressure 115/85 104/85 Blood Pressure Mean 92 91 Pulse Oximetry 94 96 95 Oxygen Delivery Method BiPAP BiPAP Oxygen Flow Rate 60 Fraction of Inspired Oxygen Sepsis Recent Fever Within 48 Hours Sepsis New/Unexplained Change in Mental Status Sepsis Action Taken by Nursing Oxygen Flow Rate - Titration 11/20/23 00:31 11/20/23 00:50 11/20/23 01:00 Temperature Temperature Source Pulse Rate 110 H 105 H 106 H Pulse Rate from SpO2 Sensor 99 H 105 H Respiratory Rate 20 21 21 Respiratory Effort / Characteristics Respiratory Depth Respiratory Pattern Blood Pressure 114/83 Blood Pressure Mean 93 Pulse Oximetry 97 98 98 Oxygen Delivery Method Oxygen Flow Rate Fraction of Inspired Oxygen Sepsis Recent Fever Within 48 Hours Sepsis New/Unexplained Change in Mental Status Sepsis Action Taken by Nursing Oxygen Flow Rate - Titration 11/20/23 01:00 11/20/23 01:10 11/20/23 01:16 Temperature Temperature Source Pulse Rate 97 H 98 H Pulse Rate from SpO2 Sensor 96 H 111 H Respiratory Rate 21 26 H Respiratory Effort / Characteristics Respiratory Depth Respiratory Pattern Blood Pressure 117/89 Blood Pressure Mean 111 Pulse Oximetry 100 87 L Oxygen Delivery Method Oxygen Flow Rate Fraction of Inspired Oxygen Sepsis Recent Fever Within 48 Hours Sepsis New/Unexplained Change in Mental Status Sepsis Action Taken by Nursing Oxygen Flow Rate - Titration 11/20/23 01:16 11/20/23 01:20 11/20/23 01:24 Temperature Temperature Source Pulse Rate 100 H 102 H Pulse Rate from SpO2 Sensor 95 H Respiratory Rate 21 18 Respiratory Effort / Characteristics Respiratory Depth Respiratory Pattern Blood Pressure 99/73 L 123/77 Blood Pressure Mean 82 92 Pulse Oximetry 98 97 Oxygen Delivery Method Oxygen Flow Rate Fraction of Inspired Oxygen Sepsis Recent Fever Within 48 Hours Sepsis New/Unexplained Change in Mental Status Sepsis Action Taken by Nursing Oxygen Flow Rate - Titration 11/20/23 01:24 11/20/23 01:24 11/20/23 01:30 Temperature Temperature Source Pulse Rate 101 H 96 H Pulse Rate from SpO2 Sensor 100 H 96 H Respiratory Rate 18 20 Respiratory Effort / Characteristics Respiratory Depth Respiratory Pattern Blood Pressure 123/77 Blood Pressure Mean 82 Pulse Oximetry 100 100 Oxygen Delivery Method Oxygen Flow Rate Fraction of Inspired Oxygen Sepsis Recent Fever Within 48 Hours Sepsis New/Unexplained Change in Mental Status Sepsis Action Taken by Nursing Oxygen Flow Rate - Titration 11/20/23 01:40 11/20/23 01:45 11/20/23 01:45 Temperature Temperature Source Pulse Rate 105 H 97 H Pulse Rate from SpO2 Sensor 107 H 83 Respiratory Rate 18 18 Respiratory Effort / Characteristics Respiratory Depth Respiratory Pattern Blood Pressure 101/82 Blood Pressure Mean 87 Pulse Oximetry 100 99 Oxygen Delivery Method Oxygen Flow Rate Fraction of Inspired Oxygen Sepsis Recent Fever Within 48 Hours Sepsis New/Unexplained Change in Mental Status Sepsis Action Taken by Nursing Oxygen Flow Rate - Titration 11/20/23 01:50 11/20/23 01:59 11/20/23 02:20 Temperature Temperature Source Pulse Rate 86 82 92 H Pulse Rate from SpO2 Sensor Respiratory Rate 18 16 18 Respiratory Effort / Characteristics Respiratory Depth Respiratory Pattern Blood Pressure 101/82 101/82 108/75 Blood Pressure Mean 88 88 86 Pulse Oximetry 100 96 96 Oxygen Delivery Method Oxygen Flow Rate Fraction of Inspired Oxygen Sepsis Recent Fever Within 48 Hours Sepsis New/Unexplained Change in Mental Status Sepsis Action Taken by Nursing Oxygen Flow Rate - Titration 11/20/23 02:35 11/20/23 02:50 11/20/23 03:00 Temperature Temperature Source Pulse Rate 91 H 88 93 H Pulse Rate from SpO2 Sensor Respiratory Rate 18 18 20 Respiratory Effort / Characteristics Non-Labored Spontaneous Respiratory Depth Normal Respiratory Pattern Regular Blood Pressure 109/72 109/76 Blood Pressure Mean 84 87 Pulse Oximetry 96 98 97 Oxygen Delivery Method Oxygen Flow Rate Fraction of Inspired Oxygen 40 Sepsis Recent Fever Within 48 Hours Sepsis New/Unexplained Change in Mental Status Sepsis Action Taken by Nursing Oxygen Flow Rate - Titration Laboratory Data 11/19/23 23:05 11/19/23 23:05 Lab Results 11/19/23 11/19/23 11/20/23 Range/Units 23:05 23:22 00:14 WBC 18.56 H (4.8-10.8) K/ul RBC 4.68 L (4.70-6.10) M/uL Hgb 14.3 (14.0-18.0) g/dl POC Hgb 14.6 (14.0-18.0) g/dl Hct 45.3 (42.0-52.0) % POC Hct 43 (42-52) % MCV 96.8 (80.0-100.0) fL MCH 30.6 (25.0-34.0) pg MCHC 31.6 L (32.0-36.0) g/dL RDW Std Deviation 52.2 H (36.4-46.3) fL RDW Coeff of Jason 14.6 H (11.5-14.5) % Plt Count 203 (130-400) K/uL MPV 12.6 H (9.4-12.4) fL Immature Gran % (Auto) 0.9 % Neut % (Auto) 69.9 % Lymph % (Auto) 18.0 % [place] % (Auto) 7.6 % Eos % (Auto) 3.0 % Baso % (Auto) 0.6 % Neut # (Auto) 12.96 H (1.40-6.50) K/uL Lymph # (Auto) 3.35 (1.20-3.40) K/uL [place] # (Auto) 1.41 H (0.11-0.59) K/uL Eos # (Auto) 0.55 H (0.00-0.50) K/uL Baso # (Auto) 0.12 (0.00-0.20) K/uL Immature Gran # (Auto) 0.17 (0.01-0.20) K/uL POC pH 7.23 L (7.35-7.45) POC pCO2 47 H (35-46) mmHg POC pO2 124 H (80-95) mmHg POC HCO3 20 (19-24) simba/L POC Total CO2 21 L (24-31) mmol/L POC Base Excess -8.0 (-9-1.8) simab/L POC ABG O2 Sat 98.0 H (90-95) % POC Sodium 138 (135-144) mmol/L Sodium 138 (136-145) mmol/L POC Potassium 4.5 (3.3-5.0) mmol/L Potassium 3.8 (3.5-5.1) mmol/L Chloride 105 (98-107) mmol/L Carbon Dioxide 19 L (21-32) mmol/L Anion Gap 14 H (3-11) BUN 25 H (6-23) mg/dl Creatinine 1.22 (0.6-1.4) mg/dl Est Cr Clr Drug Dosing 50.6 ml/min Est GFR ( Amer) 64.0 ml/min Est GFR (Non-Af Amer) 55.3 ml/min BUN/Creatinine Ratio 20.5 H (10-20) Glucose 297 H (70-99(Fasting)) mg/dl Lactate 2.2 H* (0.4-2.0) mmol/L Calcium 9.1 (8.6-10.3) mg/dl Total Bilirubin 1.1 H (0.2-1.0) mg/dl AST 21 (13-39) U/L ALT 26 (7-52) U/L Alkaline Phosphatase 66 (34-104) U/L Troponin I High Sens 5.7 (0-20) pg/ml B-Natriuretic Peptide 838 H (0-100) pg/ml Total Protein 7.5 (6.0-8.3) gm/dl Albumin 4.5 (3.4-5.0) gm/dl Globulin 3.0 (2.5-4.0) gm/dl Albumin/Globulin Ratio 1.5 (0.9-2) Procalcitonin < 0.02 (0-0.5) ng/ml Urine Color Urine Appearance (Clear) Urine pH (4.5-7.5) Ur Specific [place] (1.000-1.030) Urine Protein (Negative) Urine Glucose (UA) (Negative) Urine Ketones (Negative) Urine Blood (Negative) Urine Nitrite (Negative) Urine Bilirubin (Negative) Urine Urobilinogen (Negative) Ur Leukocyte Esterase (Negative) Adenovirus (PCR) Not Detected (NotDetected) B. pertussis DNA (PCR) Not Detected (NotDetected) B.parapertussis DNA PCR Not Detected (NotDetected) C. pneumoniae DNA (PCR) Not Detected (NotDetected) Coronavirus OC43 (PCR) Not Detected (NotDetected) Coronavirus HKU1 (PCR) Not Detected (NotDetected) Coronavirus 229E (PCR) Not Detected (NotDetected) SARS-CoV-2 (PCR) Not Detected (NotDetected) Coronavirus NL63 (PCR) Not Detected (NotDetected) Human Metapneumovir PCR Not Detected (NotDetected) Influenza Type A (PCR) Not Detected (NotDetected) Influenza Type B (PCR) Not Detected (NotDetected) M. pneumoniae (PCR) Not Detected (NotDetected) Parainfluenza 1 (PCR) Not Detected (NotDetected) Parainfluenza 2 (PCR) Not Detected (NotDetected) Parainfluenza 3 (PCR) Not Detected (NotDetected) Parainfluenza 4 (PCR) Not Detected (NotDetected) RSV (PCR) Not Detected (NotDetected) Entero/Rhino (PCR) Not Detected (NotDetected) 11/20/23 Range/Units 00:41 WBC (4.8-10.8) K/ul RBC (4.70-6.10) M/uL Hgb (14.0-18.0) g/dl POC Hgb (14.0-18.0) g/dl Hct (42.0-52.0) % POC Hct (42-52) % MCV (80.0-100.0) fL MCH (25.0-34.0) pg MCHC (32.0-36.0) g/dL RDW Std Deviation (36.4-46.3) fL RDW Coeff of Jason (11.5-14.5) % Plt Count (130-400) K/uL MPV (9.4-12.4) fL Immature Gran % (Auto) % Neut % (Auto) % Lymph % (Auto) % [place] % (Auto) % Eos % (Auto) % Baso % (Auto) % Neut # (Auto) (1.40-6.50) K/uL Lymph # (Auto) (1.20-3.40) K/uL [place] # (Auto) (0.11-0.59) K/uL Eos # (Auto) (0.00-0.50) K/uL Baso # (Auto) (0.00-0.20) K/uL Immature Gran # (Auto) (0.01-0.20) K/uL POC pH (7.35-7.45) POC pCO2 (35-46) mmHg POC pO2 (80-95) mmHg POC HCO3 (19-24) simba/L POC Total CO2 (24-31) mmol/L POC Base Excess (-9-1.8) simba/L POC ABG O2 Sat (90-95) % POC Sodium (135-144) mmol/L Sodium (136-145) mmol/L POC Potassium (3.3-5.0) mmol/L Potassium (3.5-5.1) mmol/L Chloride (98-107) mmol/L Carbon Dioxide (21-32) mmol/L Anion Gap (3-11) BUN (6-23) mg/dl Creatinine (0.6-1.4) mg/dl Est Cr Clr Drug Dosing ml/min Est GFR ( Amer) ml/min Est GFR (Non-Af Amer) ml/min BUN/Creatinine Ratio (10-20) Glucose (70-99(Fasting)) mg/dl Lactate (0.4-2.0) mmol/L Calcium (8.6-10.3) mg/dl Total Bilirubin (0.2-1.0) mg/dl AST (13-39) U/L ALT (7-52) U/L Alkaline Phosphatase (34-104) U/L Troponin I High Sens (0-20) pg/ml B-Natriuretic Peptide (0-100) pg/ml Total Protein (6.0-8.3) gm/dl Albumin (3.4-5.0) gm/dl Globulin (2.5-4.0) gm/dl Albumin/Globulin Ratio (0.9-2) Procalcitonin (0-0.5) ng/ml Urine Color Yellow Urine Appearance Clear (Clear) Urine pH 5.0 (4.5-7.5) Ur Specific [place] 1.015 (1.000-1.030) Urine Protein Negative (Negative) Urine Glucose (UA) 3+ H (Negative) Urine Ketones Negative (Negative) Urine Blood Negative (Negative) Urine Nitrite Negative (Negative) Urine Bilirubin Negative (Negative) Urine Urobilinogen Negative (Negative) Ur Leukocyte Esterase Negative (Negative) Adenovirus (PCR) (NotDetected) B. pertussis DNA (PCR) (NotDetected) B.parapertussis DNA PCR (NotDetected) C. pneumoniae DNA (PCR) (NotDetected) Coronavirus OC43 (PCR) (NotDetected) Coronavirus HKU1 (PCR) (NotDetected) Coronavirus 229E (PCR) (NotDetected) SARS-CoV-2 (PCR) (NotDetected) Coronavirus NL63 (PCR) (NotDetected) Human Metapneumovir PCR (NotDetected) Influenza Type A (PCR) (NotDetected) Influenza Type B (PCR) (NotDetected) M. pneumoniae (PCR) (NotDetected) Parainfluenza 1 (PCR) (NotDetected) Parainfluenza 2 (PCR) (NotDetected) Parainfluenza 3 (PCR) (NotDetected) Parainfluenza 4 (PCR) (NotDetected) RSV (PCR) (NotDetected) Entero/Rhino (PCR) (NotDetected) Administered Medications Albuterol (Albut/Ipratrop 3mg/0.5mg Neb 3 Ml Vial) 3 ml NEB Q4R [facility]; Protocol Stop: 12/20/23 04:32 Last Admin: 11/20/23 05:42 Dose: 3 ml Documented By: CORNELIUS Insulin Aspart (Insulin Aspart Per Unit Charge) 0 units SC Q6 [facility] Stop: 12/20/23 05:59 Last Admin: 11/20/23 06:06 Dose: Not Given Documented By: JONAH Levothyroxine Sodium (Levothyroxine Sodium 50 Mcg Tablet) 50 mcg PO DAILYBB [facility] Stop: 12/20/23 06:29 Last Admin: 11/20/23 06:08 Dose: 50 mcg Documented By: JONAH Discontinued Medications Albuterol (Albuterol 0.083% Nebu Soln 3 Ml Vial) Confirm Administered Dose 2.5 mg .ROUTE .STK-MED ONE Stop: 11/19/23 23:11 Last Admin: 11/19/23 23:10 Dose: 2.5 mg Documented By: EML Albuterol (Albuterol 0.083% Nebu Soln 3 Ml Vial) 2.5 mg NEB NOW STA; Protocol Stop: 11/19/23 23:15 Last Admin: 11/19/23 23:10 Dose: 2.5 mg Documented By: EMMariana Furosemide (Furosemide 40 Mg/4 Ml Vial) 40 mg IV ONE ONE Stop: 11/19/23 23:15 Last Admin: 11/19/23 23:18 Dose: 40 mg Documented By: SHIRA Levofloxacin/Dextrose (Levaquin/D5w) 750 mg in 150 mls @ 100 mls/hr IV NOW STA Stop: 11/20/23 02:37 Last Infusion: 11/20/23 02:55 Dose: Infused Documented By: Admin: 11/20/23 01:17 Dose: 100 mls/hr Documented By: RICHA Cefepime HCl (Maxipime) 20 mls @ 5 mls/min IV NOW STA; Protocol Stop: 11/20/23 02:56 Last Admin: 11/20/23 02:57 Dose: 5 mls/min Documented By: RICHA Vancomycin HCl 1,750 mg/ (Sodium Chloride) 535 mls @ 200 mls/hr IV NOW ONE Stop: 11/20/23 05:55 Last Admin: 11/20/23 03:15 Dose: 200 mls/hr Documented By: JONAH Discharge Plan Visit Data Chief Complaint: Shortness of Breath/Dyspnea Stated Complaint: SOB, Congestion ED Provider: Maria Fernanda Hernandez Discharge Problem: Pulmonary edema, Pneumonia, Hypoxia Patient Disposition: Admitted As Inpatient Discharge Instructions Interventions: ED Discharge Assessment Last Done: 11/20/23 04:02 Discharge Problem: Pneumonia Qualifiers: Pneumonia type: due to unspecified organism Laterality: right Lung location: l ower lobe of lung Qualified Code(s): J18.9 - Pneumonia, unspecified organism
[2023-11-19 23:40] LABS: Basophils # (auto) 0.12 K/uL (0.00-0.20); Basophils % (auto) 0.6 %; Eosinophils # (auto) 0.55 K/uL (0.00-0.50); Hematocrit (blood only) 45.3 % (42.0-52.0); Hemoglobin 14.3 g/dl (14.0-18.0); Immature Granulocytes # (auto) 0.17 K/uL (0.01-0.20); Immature Granulocytes % (auto) 0.9 %; Lymphocytes # (auto) 3.35 K/uL (1.20-3.40); Mean Corpuscular Hemoglobin 30.6 pg (25.0-34.0); Mean Corpuscular Hgb Conc 31.6 g/dL (32.0-36.0); Mean Corpuscular Volume 96.8 fL (80.0-100.0); Mean Platelet Volume 12.6 fL (9.4-12.4); Monocytes # (auto) 1.41 K/uL (0.11-0.59); Monocytes % (auto) 7.6 %; Neutrophils # (auto) 12.96 K/uL (1.40-6.50); Neutrophils % (auto) 69.9 %; Platelet Count 203 K/uL (130-400); RDW Coefficient of Variation 14.6 % (11.5-14.5); RDW Standard Deviation 52.2 fL (36.4-46.3); Red Blood Count 4.68 M/uL (4.70-6.10); White Blood Count 18.56 K/ul (4.8-10.8)
[2023-11-19 23:42] LABS: iSTAT Arterial Blood Gas HCO3 20 meg/L (19-24); iSTAT Arterial Blood Gas pCO2 47 mmHg (35-46); iSTAT Arterial Blood Gas pH 7.23 (7.35-7.45); iSTAT Arterial Blood Gas pO2 124 mmHg (80-95); iSTAT Carbon Dioxide 21 mmol/L (24-31); iSTAT Hematocrit 43 % (42-52); iSTAT Hemoglobin 14.6 g/dl (14.0-18.0); iSTAT Potassium 4.5 mmol/L (3.3-5.0); iSTAT Sodium 138 mmol/L (135-144)
[2023-11-20 00:07] LABS: Albumin Globulin Ratio 1.5 (0.9-2); Albumin Level 4.5 gm/dl (3.4-5.0); BUN Creatinine Ratio 20.5 (10-20); Bilirubin,Total 1.1 mg/dl (0.2-1.0); Calcium 9.1 mg/dl (8.6-10.3); Creatinine Clr Calc Pharmacy 50.6 ml/min; Est GFR (Non-African American) 55.3 ml/min; Potassium 3.8 mmol/L (3.5-5.1); Total Protein 7.5 gm/dl (6.0-8.3)
[2023-11-20 00:25] LABS: Adenovirus PCR Not Detected (NotDetected); Bordetella parapertussis PCR Not Detected (NotDetected); Bordetella pertussis PCR Not Detected (NotDetected); Chlamydia pneumoniae PCR Not Detected (NotDetected); Coronavirus 229E PCR Not Detected (NotDetected); Coronavirus CoV-2 (COVID19)PCR Not Detected (NotDetected); Coronavirus HKU1 PCR Not Detected (NotDetected); Coronavirus NL63 PCR Not Detected (NotDetected); Coronavirus OC43PCR Not Detected (NotDetected); Human Metapneumovirus PCR Not Detected (NotDetected); Influenza A PCR Not Detected (NotDetected); Influenza B PCR Not Detected (NotDetected); Mycoplasma pneumoniae PCR Not Detected (NotDetected); Parainfluenza Virus 1 PCR Not Detected (NotDetected); Parainfluenza Virus 2 PCR Not Detected (NotDetected); Parainfluenza Virus 3 PCR Not Detected (NotDetected); Parainfluenza Virus 4 PCR Not Detected (NotDetected); Respiratory Syncytial VirusPCR Not Detected (NotDetected); Rhinovirus/Enterovirus PCR Not Detected (NotDetected)
[2023-11-20 00:54] LABS: Appearance Urine Clear (Clear); Bilirubin Urine Negative (Negative); Blood Urine Negative (Negative); Color Urine Yellow; Glucose Urine UA 3+ (Negative); Ketones Urine Negative (Negative); Leukocyte Esterase Urine Negative (Negative); Nitrite Urine Negative (Negative); Protein Urine Negative (Negative); Specific Gravity Urine 1.015 (1.000-1.030); Urobilinogen Urine Negative (Negative)
[2023-11-20 01:14] LABS: Troponin I High Sensitivity 5.7 pg/ml (0-20)
[2023-11-20] MEDS: levoFLOXacin/D5W 750 MG/150 ML BAG IV STA (01:17)
--- NOTE | 2023-11-20 01:56 | History & Physical Report ---
"Date of Service November 20, 2023 Assessment & Plan (1) Acute hypoxic respiratory failure: Plan: Acute Hypoxic Respiratory Failure | Anion Gap Metabolic Acidosis - Likely Multifactorial: PNA vs HF Exacerbation - Initial ABG with anion gap metabolic acidosis, repeat now s/p BiPAP - Continue O2 support with BiPap, no baseline O2 requirement, wean as tolerated - DuoNeb Q4h - Pulmonary toilet PNA | SIRS + w/ source on presentation - CXR concerning for RLL consolidation/aspiration PNA - S/p Levofloxacin in ED, change to Vancomycin/Cefepime, MRSA nares ordered - Leukocytosis noted w/ neutrophil predominance, Procal negative - Continue home montelukast HF Exacerbation - Pulmonary congestion on CXR - Elevated BNP on presentation - Echo 10/2021 w/ EF of 25-30% - Patient chronically on Bumex 1 mg PO qAM, denies worsening LE edema - S/p Lasix 40 mg IV in ED, repeat in AM, presenting Cr/GFR wnl, repeat in AM - Continue Entreso and Spironolactone Atrial Fibrillation - Irregular on presentation w/o palpitations - Continue Xarelto for anticoagulation - HR stable on presentation, Carvedilol 12.5 mg PO daily held while on DuoNebs for breathing support - Restart Carvedilol 12.5 mg PO daily when off Nebs - Continue Amiodarone 200 mg PO daily DM2 - SSI while inpatient, home medications held - Add basal/bolus regimen after seeing inpatient need GERD - Continue PPI HLD - Statin held Hypothyroidism - Continue home medication HTN - Carvedilol held - Continue Sacubitril-valsartan - Follow BP/HR CAD - Continue Isosorbide mononitrate and aspirin - Patient with ICD Code: Full FENGI: DM2, no IVF DVT: Xarelto Disp: PCU/Tele (2) HFrEF (heart failure with reduced ejection fraction): (3) Pneumonia: (4) Paroxysmal atrial fibrillation: (5) Diabetes mellitus: (6) Gastroesophageal reflux disease: (7) Hyperlipidemia: (8) Hypothyroidism: (9) HTN (hypertension): (10) Lumbar spinal stenosis: (11) CAD (coronary artery disease): History of Present Illness Chief Complaint: Dyspnea Primary Care Provider: BERE Stallworth is an 83M with PMH of A Fib on Xarelto, CAD w/ ICD, cardiomyopathy, pulmonary nodules, hiatal hernia, LBP, orthostasis, DM2, GERD, HLD, HTN, and hypothyroidism who presents for evaluation of dyspnea. ED Course: Albuterol, Furosemide, Levofloxacin Patient notes that over the last 2 weeks he has had increasing upper respiratory congestion and that over the last few days he has had some congestion in his chest. He notes that today was the worst. He denies any chest pains or pleuritic pains. He denies fevers or chills. He has not experienced any headaches or lightheadedness. Patient denies any increasing lower extremity edema, claudication, or orthopnea. He notes that he is active at home at baseline and enjoys doing activities with his amish. He notes that he recently started taking a new medication for heart rate control (Amiodarone) and that his symptoms worsened after starting it, but that the congestion had already begun before starting the new medication. Patient notes that at present he is not feeling short of breath and is much improved from presentation. Patient lives at home with his who will be coming to visit. He is not on oxygen support at home. Allergies Allergy/AdvReac Type Severity Reaction Status Date / Time omeprazole Allergy Intermediate HIVES AND Verified 11/01/23 14:39 ITCHING Penicillins Allergy Intermediate hives Verified 11/01/23 14:39 sucralfate Allergy Intermediate hives Verified 11/01/23 14:39 Sulfa (Sulfonamide Allergy Intermediate HIVES Verified 11/01/23 14:39 Antibiotics) mold Allergy Mild HAY FEVER Verified 11/01/23 14:39 dutasteride Allergy Unknown rash- Verified 11/01/23 14:39 tolerates name brand Avodart esomeprazole Allergy Unknown rash- Verified 11/01/23 14:39 tolerates name brand Nexium grass pollen Allergy Unknown Unknown Verified 11/01/23 14:39 grass pollen-perennial rye, Allergy Unknown HAY FEVER Verified 11/01/23 14:39 standar house dust Allergy Unknown Unknown Verified 11/01/23 14:39 house dust mite Allergy Unknown Unknown Verified 11/01/23 14:39 tree and shrub pollen Allergy Unknown Unknown Verified 11/01/23 14:39 pantoprazole [From Protonix] AdvReac Intermediate Hives Verified 11/01/23 14:39 Home Medications Medication Instructions Recorded Confirmed Type cholecalciferol (vitamin D3) 25 1 tab PO QPM 07/25/18 11/19/23 History mcg (1,000 unit) tablet (Vitamin D3) lysine 1,000 mg tablet 1,000 mg PO BID 07/25/18 11/19/23 History montelukast 10 mg tablet 10 mg PO PM 07/25/18 11/19/23 History multivitamin 1 tab PO QAM 07/25/18 11/19/23 History diclofenac sodium 75 mg 75 mg PO QAM #30 tabs 05/31/19 11/19/23 History tablet,delayed release omega-3 fatty acids 1,000 mg 1,000 mg PO QAM 11/03/20 11/19/23 History capsule (Fish Oil Concentrate) alogliptin 25 mg tablet 25 mg PO QAM 02/18/21 11/19/23 History sitagliptin phosphate 100 mg 100 mg PO QAM 02/18/21 11/19/23 History tablet (Januvia) rivaroxaban 20 mg tablet (Xarelto) 20 mg PO QPM #90 tabs 09/08/21 11/19/23 Rx metformin 500 mg tablet,extended 500 mg PO DAILY #30 tabs 01/29/22 11/19/23 Rx release 24 hr atorvastatin 40 mg tablet 40 mg PO DAILY #90 tabs 11/18/22 11/19/23 Rx carvedilol 12.5 mg tablet 12.5 mg PO BID #180 tabs 04/04/23 11/19/23 Rx sacubitril 49 mg-valsartan 51 mg 0.5 tab PO BID 05/11/23 11/19/23 History tablet (Entresto) gabapentin 400 mg capsule 400 mg PO HS 06/07/23 11/19/23 History finasteride 5 mg tablet 5 mg PO DAILY #90 tabs 06/16/23 11/19/23 Rx tamsulosin 0.4 mg capsule 0.4 mg PO HS #90 caps 06/16/23 11/19/23 Rx spironolactone 25 mg tablet 25 mg PO DAILY #90 tabs 06/20/23 11/19/23 Rx doxycycline hyclate 100 mg tablet 100 mg PO BID 7 days #14 tabs 11/01/23 11/19/23 Rx amiodarone 200 mg tablet 200 mg PO DAILY #90 tabs 11/03/23 11/19/23 Rx aspirin 81 mg tablet,delayed 81 mg PO QAM 11/19/23 11/19/23 History release (Jamila Low Dose Aspirin) bumetanide 1 mg tablet 1 mg PO QAM 11/19/23 11/19/23 History dexlansoprazole 30 mg 30 mg PO QAM 11/19/23 11/19/23 History capsule,biphase delayed release (Dexilant) empagliflozin 10 mg tablet 10 mg PO QAM 11/19/23 11/19/23 History (Jardiance) famotidine 40 mg tablet 40 mg PO QAM 11/19/23 11/19/23 History gabapentin 300 mg capsule 300 mg PO .DAILY IN AFTERNOON 11/19/23 11/19/23 History isosorbide mononitrate 30 mg 30 mg PO QAM 11/19/23 11/19/23 History tablet,extended release 24 hr levothyroxine 50 mcg tablet 50 mcg PO DAILYBB 11/19/23 11/19/23 History potassium chloride 20 mEq 20 meq PO QAM 11/19/23 11/19/23 History tablet,extended release Past Med/Surg History Medical History Acute hypoxic respiratory failure Pneumonia HFrEF (heart failure with reduced ejection fraction) Paroxysmal nocturnal dyspnea Hypervolemia BPH loc w urin obs/LUTS Screening for prostate cancer Colon polyps Arthritis, multiple joint involvement Hyperlipidemia HTN (hypertension) Hypothyroidism Lumbar spinal stenosis Hearing deficit Hx of traumatic fx right foot - surgical repair BPH (benign prostatic hyperplasia) GERD (gastroesophageal reflux disease) Diabetes mellitus, type 2 History of skin cancer lip Chronic back pain with numbness and tingling down right leg Seasonal allergies Surgical History Status post placement of cardiac pacemaker Hx of cardiac catheterization H/O sinus surgery 09/[address] 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 Hx of shoulder replacement right Family History Mother Family history of diabetes mellitus Congestive heart failure Brother Lung cancer Other Hypertension Denies family history of Ovarian cancer Prostate cancer Myocardial infarction Breast cancer Colorectal cancer Social History Smoking Status: Never smoker Tobacco Type: Cigarettes Age Started Using Tobacco: 18; Age Quit Using Tobacco: 40; packs per day: 1; Second Hand Exposure: No; Do You Dip or Chew Tobacco: No; Hx Alcohol Use: No Hx Substance Use: No Preferred Language: Kosovan Communication Ability: Effective Visual Impairment: No Limitations Hearing Ability: Use of Hearing Aid Hide Dropper Required: No Beliefs That Will Affect Care: None marital status: Current Living Situation: Spouse current occupational status: retired How many Children do You have: 5 How many Children do You have Comment: 3 biological and 2 step children Other Information That Helps Us Care for You: No Feels Safe at Home: Yes Safety Concerns: Feels Safe At This Time Diet: regular Diet Comment: regular caffeine: Yes (Coffee x 2-3 per day.) during the past year weight has: remained stable Dental Care, Regularly: Yes Physical Activity Frequency: 3-4 Times per Week Seatbelt Use: always Sunscreen Use: Yes Assistive Devices: None Physical Exam Physical Exam: Gen: NAD, conversive, BiPap in place, non-toxic HEENT: Supple, no LAD, no thyromegaly, mild JVD, MMM Resp:Non-labored, expiratory wheezing in right lung [place], otherwise CTAB CV:irregular, normal S1/S2, no M/R/G Abd: Soft, non-distended, no TTP, normoactive bowels, no masses Extr: 2+ dp bilaterally, no edema Skin: No rashes lesions or erythema Results & Data Results & Data Vital Signs (Past 12 Hours) Vital Signs Temp Pulse Resp BP Pulse Ox O2 Del Method O2 Flow Rate 11/20/23 01:24 102 H 18 123/77 97 11/20/23 00:31 110 H 20 114/83 97 11/20/23 00:15 116 H 24 104/85 95 BiPAP 60 11/20/23 00:00 106 H 24 115/85 96 11/19/23 23:30 94 BiPAP 11/19/23 23:15 117 H 47 H 105/83 100 BiPAP 11/19/23 23:11 113 H 11/19/23 23:00 36.6 C 103 H 36 H 143/94 H 65 L Room Air 11/19/23 22:59 65 L Non-rebreather Supervising Physician Co-Signing Physician Notes Attending addendum: I have physically seen this patient, have supervised the medical residents activities, and agree with the H&P unless as otherwise noted. Assessment and Plan: Acute respiratory failure with hypoxia/pneumonia/CHF- Continue BiPAP, with taper as appropriate CHF/ischemic cardiomyopathy/permanent atrial fibrillation/CAD- The patient will be admitted to telemetry for serial cardiac enzymes, serial EKG's, cardiac rhythm monitoring and a 2-D echocardiogram with Dopplers. Given Lasix 40 mg IV in ED, will continue every morning Follow serial BMP and magnesium levels Hold carvedilol for now Continue isosorbide mononitrate, Entresto and spironolactone for now as long as blood pressure allows Continue Xarelto Pneumonia- Consolidation right lower lobe with less involved left lower lobe Status post levofloxacin 750 mg IV in ED Placed on vancomycin IV and cefepime IV MRSA swab Duonebs every 4 hours while awake and every 2 hours when necessary. Diabetes mellitus- Hold metformin, Januvia and Jardiance Placed on Accu-Cheks with NovoLog SSI Remaining orders and notations as noted Resident Activity Tracking Resident Involvement: Resident Care Provided Care Provided: Adult Hospital Medicine ((Night)) (7) Hyperlipidemia Hyperlipidemia type: mixed hyperlipidemia Qualified Code(s): E78.2 - Mixed hyperlipidemia (9) HTN (hypertension) Hypertension type: primary hypertension Qualified Code(s): I10 - Essential (primary) hypertension (11) CAD (coronary artery disease) Associated angina: without angina Coronary Disease-Associated Artery/Lesion type: [place] artery [place] vs. transplanted heart: [place] heart Qualified Code(s): I25.10 - Atherosclerotic heart disease of [place] coronary artery without angina pectoris"
[2023-11-20] MEDS ORDERED: SODIUM CHLORIDE 0.9% IV SCH (02:15)
[2023-11-20] MEDS ORDERED: VANCOMYCIN HCL IV SCH (02:15)
[2023-11-20] MEDS ORDERED: VANCOMYCIN CONSULT ACTIVE PRN (02:15)
[2023-11-20] MEDS: CEFEPIME 20 ML IV STA (02:57)
[2023-11-20] MEDS: VANCOMYCIN HCL 1,750 MG in SODIUM CHLORIDE 0.9% 500 ML IV ONE (03:15)
[2023-11-20 03:28] LABS: Base Excess ABG 0.3 mEq/L (-9-1.8); HCO3 ABG 24 mmol/L (19-24); Oxygen Saturation ABG 98.3 % (90-95); PCO2 ABG 33 mmHg (35-46); PO2 ABG 90 mmHg (80-95); pH ABG 7.46 (7.35-7.45)
[2023-11-20 03:29] LABS: Allen Test Pos (Pos)
[2023-11-20] MEDS ORDERED: GLUCAGON FOR INJ 1 MG VIAL SQ PRN (04:33)
[2023-11-20] MEDS ORDERED: GLUCOSE 10 TAB/TUBE PO PRN (04:33)
[2023-11-20] MEDS ORDERED: ACETAMINOPHEN 325 MG TAB PO PRN (04:33)
[2023-11-20] MEDS ORDERED: DEXTROSE 50% 50 ML SYRINGE IV PRN (04:33)
[2023-11-20] MEDS ORDERED: CARBOHYDRATES FOR HYPOGLYCEMIA PO PRN (04:33)
[2023-11-20] MEDS ORDERED: GLUCOSE 40% GEL 15 GM TUBE PO PRN (04:33)
[2023-11-20] MEDS: ALBUT/IPRATROP 3MG/0.5MG NEB 3 ML VIAL NEB SCH ×2 (05:42→11:15)
[2023-11-20] MEDS: INSULIN ASPART PER UNIT CHARGE SC SCH ×2 (06:06→16:48)
[2023-11-20] MEDS: LEVOTHYROXINE SODIUM 50 MCG TABLET PO SCH (06:08)
[2023-11-20 08:23] LABS: Hematocrit (blood only) 37.5 % (42.0-52.0); Hemoglobin 12.3 g/dl (14.0-18.0); Mean Corpuscular Hemoglobin 30.5 pg (25.0-34.0); Mean Corpuscular Hgb Conc 32.8 g/dL (32.0-36.0); Mean Corpuscular Volume 93.1 fL (80.0-100.0); Mean Platelet Volume 12.4 fL (9.4-12.4); Platelet Count 158 K/uL (130-400); RDW Coefficient of Variation 14.4 % (11.5-14.5); RDW Standard Deviation 49.4 fL (36.4-46.3); Red Blood Count 4.03 M/uL (4.70-6.10); White Blood Count 8.96 K/ul (4.8-10.8)
--- NOTE | 2023-11-20 08:27 | XRay Report ---
XR chest 1V portable CLINICAL HISTORY: Dyspnea TECHNIQUE: Single frontal radiograph of the chest was obtained. Comparison: Comparison is made to chest radiograph 07/13/2023 FINDINGS: An implanted pacemaker is seen. Cardiomegaly is noted. Bilateral lower lung predominant airspace opac ities are seen. No evidence of pleural effusion or pneumothorax. IMPRESSION: Bilateral lower lung predominant airspace opacities which may represent atelectasis, pneumonia, and/o r aspiration. ACT 112: Negative or not required by law. Electronically signed by: Clayton Horn M.D. 11/20/2023 8:26 AM
[2023-11-20 08:55] LABS: BUN Creatinine Ratio 27.2 (10-20); Calcium 8.6 mg/dl (8.6-10.3); Creatinine Clr Calc Pharmacy 67.3 ml/min; Est GFR (African American) 90.1 ml/min; Est GFR (Non-African American) 77.7 ml/min; Potassium 3.9 mmol/L (3.5-5.1)
--- NOTE | 2023-11-20 08:59 | Electrocardiogram Report ---
Test Reason : Blood Pressure : / mmHG Vent. Rate : 096 BPM Atrial Rate : 091 BPM P-R Int : 144 ms QRS Dur : 116 ms QT Int : 386 ms P-R-T Axes : 000 046 -82 degrees QTc Int : 487 ms Atrial fibrillation with intermittent electronic biventricular pacing Low voltage QRS Prolonged QT Abnormal ECG When compared with ECG of 07-JUN-2023 15:18, Premature ventricular complexes no longer present Otherwise no significant change Confirmed by Mu Mancia ([id number]) on 11/20/2023 8:59:29 AM Referred By: REFERRED SELF Confirmed By:Mu Mancia
[2023-11-20] MEDS ORDERED: NON-FORMULARY MEDICATION (Lysine 1,000 mg Tablet) PO SCH (09:00)
[2023-11-20] MEDS: FUROSEMIDE 40 MG/4 ML VIAL IV ONE (09:03)
[2023-11-20] MEDS: SPIRONOLACTONE 25 MG TAB PO SCH (09:04)
[2023-11-20] MEDS: AMIODARONE 200 MG TAB PO SCH (09:04)
[2023-11-20] MEDS: FINASTERIDE 5 MG TAB PO SCH (09:04)
[2023-11-20] MEDS: VALSARTAN/SACUBITRIL 51/49 MG TAB PO SCH (09:04)
[2023-11-20] MEDS: ISOSORBIDE MONO EXTENDED REL 30 MG TABCR PO SCH (09:04)
[2023-11-20] MEDS: ASPIRIN 81 MG ECTAB PO SCH (09:04)
[2023-11-20] MEDS: POTASSIUM CHLORIDE CRTAB 20 MEQ TABCR PO SCH (09:04)
[2023-11-20] MEDS: FAMOTIDINE 40 MG TABLET PO SCH (09:05)
[2023-11-20] MEDS: DICLOFENAC SODIUM 75 MG TABCR PO SCH (09:05)
[2023-11-20] MEDS: FUROSEMIDE 40 MG/4 ML VIAL IV SCH (09:12)
--- NOTE | 2023-11-20 10:51 | Hospitalist Progress Note ---
Date of Service November 20, 2023 Assessment & Plan (1) Acute on chronic systolic (congestive) heart failure: Plan: Telemetry. Lasix parenteral diuresis. Monitor intake and output. Serial chest x-ray. Cardiology consultation is pending (2) Acute hypoxic respiratory failure: Plan: Supplemental oxygen per nasal cannula to maintain saturation greater than 90%. Wean off as tolerated (3) Pneumonia: Plan: Doubt coexistence of pneumonia. Negative examination and no sputum production. No prodrome of coughing. Vancomycin has been discontinued. Will continue cefepime for 1 more day however (4) Chronic atrial fibrillation: Plan: Telemetry. Controlled rate. Continue Xarelto. (5) Diabetes mellitus: Plan: ADA diet. Sliding scale coverage as needed. Continue current medical management (6) Coronary atherosclerosis: Plan: Stable. Continue current medical Plan Hopeful discharge to home in the next few days Admission and Anticipated Discharge Date Admission Date: November 20, 2023 Subjective Alert and oriented. No distress. Cardiology consultation pending. Continue parenteral Lasix diuresis. He denies any cough or sputum production. Clinically, there is no evidence of pneumonia Review of Systems 2 Review of Systems: Constitutional-no fever or chills ENT-no blurred vision, no double vision, no epistaxis, no sore throat Respiratory-no cough, no wheezing. Shortness of breath with exertion Cardiac-no palpitations, no chest pain, no syncope GI-no nausea, vomiting, diarrhea, melena, hematochezia -no urinary retention, no urinary incontinence, no dysuria, no hematuria Musculoskeletal-no joint pain, no muscle tenderness Skin-no bruising, no rashes, no pruritus Neuro-no isolated weakness, no paresthesia Psych-no depression, no anxiety Physical Exam 2 Physical Exam: General-alert and oriented x3, no fever, no chills HEENT-head atraumatic and normocephalic, pupils equal and reactive to light, extraocular muscles intact Neck-no lymphadenopathy or thyromegaly, trachea midline Chest-bibasilar inspiratory rales. No wheezing. No rhonchi. Cardiac-irregular rhythm. Controlled rate. Normal S1 and S2. Abdomen-normal bowel sounds, nontender, no hepatosplenomegaly Extremities-no cyanosis, clubbing, or edema Neuro-cranial nerves II through XII intact, motor and sensory function within normal limits, strength symmetrical, no focal deficits Psych-normal affect, normal mood Results & Data Results & Data Vital Signs (Past 12 Hours) Vital Signs Temp Pulse Pulse Resp BP BP Pulse Ox 11/20/23 07:30 79 11/20/23 07:20 36.8 C 80 19 116/72 92 11/20/23 05:42 78 18 95 11/20/23 05:25 81 11/20/23 04:33 36.6 C 97 H 18 122/76 93 11/20/23 04:33 11/20/23 03:45 95 H 18 101/81 97 11/20/23 03:20 90 11/20/23 03:00 93 H 20 109/76 97 11/20/23 02:50 88 18 109/72 98 11/20/23 02:35 91 H 18 96 11/20/23 02:20 92 H 18 108/75 96 11/20/23 01:59 82 16 101/82 96 11/20/23 01:50 86 18 101/82 100 11/20/23 01:45 101/82 11/20/23 01:45 97 H 18 99 11/20/23 01:40 105 H 18 100 11/20/23 01:30 96 H 20 100 11/20/23 01:24 123/77 11/20/23 01:24 101 H 18 100 11/20/23 01:24 102 H 18 123/77 97 11/20/23 01:20 100 H 21 98 11/20/23 01:16 99/73 L 11/20/23 01:16 98 H 26 H 87 L 11/20/23 01:10 97 H 21 100 11/20/23 01:00 117/89 11/20/23 01:00 106 H 21 98 11/20/23 00:50 105 H 21 98 11/20/23 00:31 110 H 20 114/83 97 11/20/23 00:15 116 H 24 104/85 95 11/20/23 00:00 106 H 24 115/85 96 11/19/23 23:30 94 11/19/23 23:15 95 H 41 H 94 11/19/23 23:15 117 H 47 H 105/83 100 11/19/23 23:11 113 H 11/19/23 23:00 36.6 C 103 H 36 H 143/94 H 65 L 11/19/23 22:59 65 L Pulse Ox O2 Del Method O2 Del Method O2 Flow Rate O2 Flow Rate FiO2 11/20/23 07:30 11/20/23 07:20 Nasal Cannula 5.0 11/20/23 05:42 Nasal Cannula 5 11/20/23 05:25 11/20/23 04:33 Nasal Cannula 4 11/20/23 04:33 93 Nasal Cannula 4 11/20/23 03:45 11/20/23 03:20 11/20/23 03:00 11/20/23 02:50 11/20/23 02:35 40 11/20/23 02:20 11/20/23 01:59 11/20/23 01:50 11/20/23 01:45 11/20/23 01:45 11/20/23 01:40 11/20/23 01:30 11/20/23 01:24 11/20/23 01:24 11/20/23 01:24 11/20/23 01:20 11/20/23 01:16 11/20/23 01:16 11/20/23 01:10 11/20/23 01:00 11/20/23 01:00 11/20/23 00:50 11/20/23 00:31 11/20/23 00:15 BiPAP 60 11/20/23 00:00 11/19/23 23:30 BiPAP 11/19/23 23:15 80 11/19/23 23:15 BiPAP 11/19/23 23:11 11/19/23 23:00 Room Air 11/19/23 22:59 Non-rebreather Laboratory Results 11/20/23 07:52 11/20/23 07:52 PG Care Time/CCT Total # of Minutes Spent Total Time Spent with Patient: Total time spent is greater than 50% in coordination of care (as documented) at patient's floor/unit and/or counseling patient: Coding Level of Care Code 44607 SUB INP/OBS CARE 3/50MIN Diagnoses Acute on chronic systolic (congestive) heart failure I50.23 Acute hypoxic respiratory failure J96.01 Pneumonia J18.9 Chronic atrial fibrillation I48.20 Diabetes mellitus E11.9 Coronary atherosclerosis I25.10
[2023-11-20] MEDS ORDERED: Nursing to Pharmacy Communication SCH (11:45)
[2023-11-20] MEDS ORDERED: VANCOMYCIN HCL 1,000 MG in SODIUM CHLORIDE 0.9% 250 ML IV SCH (14:00)
[2023-11-20] MEDS: GABAPENTIN 300 MG CAP PO SCH (15:02)
[2023-11-20] MEDS: CEFEPIME 2,000 MG in SYRINGE 0 ML IV SCH (15:03)
--- NOTE | 2023-11-20 16:30 | Cardiology Consultation ---
Date of Consultation November 20, 2023 Assessment & Plan (1) HFrEF (heart failure with reduced ejection fraction): (2) ICD (implantable cardioverter-defibrillator), biventricular, in situ: (3) Permanent atrial fibrillation: (4) Ischemic cardiomyopathy: (5) Nonocclusive coronary atherosclerosis of [place] coronary artery: Plan 83-year-old man with complex cardiac history who had subacute decompensation with increased dyspnea which appears to have been secondary to HFrEF/transient pulmonary edema. At this point there is no evidence of ongoing pneumonia, he is afebrile with a normal white count and his symptoms essentially resolved with diuresis. As noted, possibly started on ranolazine recently, but it's not clear that he received the medicine due to lack of insurance coverage and this is not a medication which would commonly be associated with CHF exacerbation (unless it caused acute renal failure, which does not appear to be the case here). Etiology of his current decompensation is uncertain, no obvious dietary change or other major events, he may simply have limited cardiac reserve and "crossed the line" into heart failure. Continue his usual GDMT medications including carvedilol, Entresto, spironolactone, and Jardiance. His diuretic regimen at as an outpatient appears to be Bumex 1 mg daily, upon discharge would recommend weight-based diuretic regimen whereby even minor weight gain would prompt temporary increase in Bumex to 2 mg daily (after diuresis could resume 1 mg daily). Recommend follow-up with Elaina Kemp PA-C in heart failure clinic. His coronary disease is nonocclusive, but he should be continued on atorvastatin and possibly aspirin (has been on this, but rivaroxaban may cover CAD indication). History of Present Illness Reason for Consultation: exac CHF-S, respiratory failure Requesting Physician: Jesus Caro MD Attending Physician: Jesus Caro MD History of Present Illness 83-year-old man with permanent atrial fibrillation (amiodarone/carvedilol/delma aroxaban), nonobstructive CAD (2022 cath), nonischemic cardiomyopathy (EF 25- 30%), status post biventricular ICD 2022, with a history of HFrEF who noted several weeks of increasing dyspnea on exertion culminating in hospital admission today (11/19/2022). He denies chest pain at any time and noted no significant palpitations, presyncope, or syncope. He did note fatigue and dyspnea to the point that he felt he simply "couldn't breathe". His weight is largely unchanged, although he said he may have gained a couple of pounds. No significant leg edema. No fever or cough. Chest x-ray on admission showed increased vasculature at the bases. There was some question as to whether this was pneumonia, but after a brisk diuresis (2000 mL) overnight he feels much better. Of note, he was recently to be started on ranolazine, it's not clear that he actually took this since it was not covered by insurance. At the time my evaluation, patient was able to lie flat and denied any dyspnea, chest pain, or other symptoms. Telemetry showed atrial fibrillation with intermittent electronic biventricular pacing. Allergies Allergy/AdvReac Type Severity Reaction Status Date / Time omeprazole Allergy Intermediate HIVES AND Verified 11/01/23 14:39 ITCHING Penicillins Allergy Intermediate hives Verified 11/01/23 14:39 sucralfate Allergy Intermediate hives Verified 11/01/23 14:39 Sulfa (Sulfonamide Allergy Intermediate HIVES Verified 11/01/23 14:39 Antibiotics) mold Allergy Mild HAY FEVER Verified 11/01/23 14:39 dutasteride Allergy Unknown rash- Verified 11/01/23 14:39 tolerates name brand Avodart esomeprazole Allergy Unknown rash- Verified 11/01/23 14:39 tolerates name brand Nexium grass pollen Allergy Unknown Unknown Verified 11/01/23 14:39 grass pollen-perennial rye, Allergy Unknown HAY FEVER Verified 11/01/23 14:39 standar house dust Allergy Unknown Unknown Verified 11/01/23 14:39 house dust mite Allergy Unknown Unknown Verified 11/01/23 14:39 tree and shrub pollen Allergy Unknown Unknown Verified 11/01/23 14:39 pantoprazole [From Protonix] AdvReac Intermediate Hives Verified 11/01/23 14:39 Home Medications Medication Instructions Recorded Confirmed Type cholecalciferol (vitamin D3) 25 1 tab PO QPM 07/25/18 11/19/23 History mcg (1,000 unit) tablet (Vitamin D3) lysine 1,000 mg tablet 1,000 mg PO BID 07/25/18 11/19/23 History montelukast 10 mg tablet 10 mg PO PM 07/25/18 11/19/23 History multivitamin 1 tab PO QAM 07/25/18 11/19/23 History diclofenac sodium 75 mg 75 mg PO QAM #30 tabs 05/31/19 11/19/23 History tablet,delayed release omega-3 fatty acids 1,000 mg 1,000 mg PO QAM 11/03/20 11/19/23 History capsule (Fish Oil Concentrate) alogliptin 25 mg tablet 25 mg PO QAM 02/18/21 11/19/23 History sitagliptin phosphate 100 mg 100 mg PO QAM 02/18/21 11/19/23 History tablet (Januvia) rivaroxaban 20 mg tablet (Xarelto) 20 mg PO QPM #90 tabs 09/08/21 11/19/23 Rx metformin 500 mg tablet,extended 500 mg PO DAILY #30 tabs 01/29/22 11/19/23 Rx release 24 hr atorvastatin 40 mg tablet 40 mg PO DAILY #90 tabs 11/18/22 11/19/23 Rx carvedilol 12.5 mg tablet 12.5 mg PO BID #180 tabs 04/04/23 11/19/23 Rx sacubitril 49 mg-valsartan 51 mg 0.5 tab PO BID 05/11/23 11/19/23 History tablet (Entresto) gabapentin 400 mg capsule 400 mg PO HS 06/07/23 11/19/23 History finasteride 5 mg tablet 5 mg PO DAILY #90 tabs 06/16/23 11/19/23 Rx tamsulosin 0.4 mg capsule 0.4 mg PO HS #90 caps 06/16/23 11/19/23 Rx spironolactone 25 mg tablet 25 mg PO DAILY #90 tabs 06/20/23 11/19/23 Rx doxycycline hyclate 100 mg tablet 100 mg PO BID 7 days #14 tabs 11/01/23 11/19/23 Rx amiodarone 200 mg tablet 200 mg PO DAILY #90 tabs 11/03/23 11/19/23 Rx aspirin 81 mg tablet,delayed 81 mg PO QAM 11/19/23 11/19/23 History release (Jamila Low Dose Aspirin) bumetanide 1 mg tablet 1 mg PO QAM 11/19/23 11/19/23 History dexlansoprazole 30 mg 30 mg PO QAM 11/19/23 11/19/23 History capsule,biphase delayed release (Dexilant) empagliflozin 10 mg tablet 10 mg PO QAM 11/19/23 11/19/23 History (Jardiance) famotidine 40 mg tablet 40 mg PO QAM 11/19/23 11/19/23 History gabapentin 300 mg capsule 300 mg PO .DAILY IN AFTERNOON 11/19/23 11/19/23 History isosorbide mononitrate 30 mg 30 mg PO QAM 11/19/23 11/19/23 History tablet,extended release 24 hr levothyroxine 50 mcg tablet 50 mcg PO DAILYBB 11/19/23 11/19/23 History potassium chloride 20 mEq 20 meq PO QAM 11/19/23 11/19/23 History tablet,extended release Patient History Medical History Acute hypoxic respiratory failure Pneumonia HFrEF (heart failure with reduced ejection fraction) Paroxysmal nocturnal dyspnea Hypervolemia BPH loc w urin obs/LUTS Screening for prostate cancer Colon polyps Arthritis, multiple joint involvement Hyperlipidemia HTN (hypertension) Hypothyroidism Lumbar spinal stenosis Hearing deficit Hx of traumatic fx right foot - surgical repair BPH (benign prostatic hyperplasia) GERD (gastroesophageal reflux disease) Diabetes mellitus, type 2 History of skin cancer lip Chronic back pain with numbness and tingling down right leg Seasonal allergies Surgical History Status post placement of cardiac pacemaker Hx of cardiac catheterization H/O sinus surgery 09/[address] 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 Hx of shoulder replacement right Family History Mother Family history of diabetes mellitus Congestive heart failure Brother Lung cancer Other Hypertension Denies family history of Ovarian cancer Prostate cancer Myocardial infarction Breast cancer Colorectal cancer Social History Smoking Status: Never smoker Tobacco Type: Cigarettes Age Started Using Tobacco: 18; Age Quit Using Tobacco: 40; packs per day: 1; Second Hand Exposure: No; Do You Dip or Chew Tobacco: No; Hx Alcohol Use: No Hx Substance Use: No Preferred Language: Pashto Communication Ability: Effective Visual Impairment: No Limitations Hearing Ability: Use of Hearing Aid [place] [employer] Required: No Beliefs That Will Affect Care: None marital status: Current Living Situation: Spouse current occupational status: retired How many Children do You have: 5 How many Children do You have Comment: 3 biological and 2 step children Other Information That Helps Us Care for You: No Feels Safe at Home: Yes Safety Concerns: Feels Safe At This Time Diet: regular Diet Comment: regular caffeine: Yes (Coffee x 2-3 per day.) during the past year weight has: remained stable Dental Care, Regularly: Yes Physical Activity Frequency: 3-4 Times per Week Seatbelt Use: always Sunscreen Use: Yes Assistive Devices: None Physical Exam Physical Exam: Only white male appears comfortable. BP normotensive. Pulse 80 bpm and irregular. Respirations 18 and unlabored. Skin: no ecchymoses or generalized lesions. HEENT: unremarkable. Neck: JVP just above the clavicle at 90 degrees, no carotid bruits. Lungs: Moderately decreased breath sounds but generally clear. No accessory muscle use. Cardiac: regular rhythm, normal S1-2, 2/6 apical holosystolic murmur rating to the axilla, no diastolic murmur. Abdomen: benign. Extremities: no significant edema, pulses intact. Neurologic: normal affect and conversation, nonfocal. Results & Data Laboratory Results Troponin 5.7. Normal electrolytes, BUN 25, creatinine 0.92. Hemoglobin 12.3. WBC initially 18.56, 8.96 today. Normal platelet count Diagnostic Findings Chest x-ray as noted. ECG showed atrial fibrillation with intermittent electronic biventricular pacing. PG Care Time/CCT Total # of Minutes Spent Total Time Spent with Patient: Total time spent is greater than 50% in coordination of care (as documented) at patient's floor/unit and/or counseling patient: Coding Level of Care Code 85678 IN/OBS CONSULT LVL 4,60M Diagnoses HFrEF (heart failure with reduced ejection fraction) I50.20 ICD (implantable cardioverter-defibrillator), biventricular, in situ Z95.810 Permanent atrial fibrillation I48.21 Ischemic cardiomyopathy I25.5 Nonocclusive coronary atherosclerosis of [place] coronary artery I25.10
[2023-11-20] MEDS: carvediloL 12.5 MG TAB PO SCH (17:33)
[2023-11-20] MEDS: RIVAROXABAN 20 MG TAB PO SCH (17:33)
--- NOTE | 2023-11-20 19:06 | Billing Data ---
Date of Service November 20, 2023 Coding Level of Care Code 23851 INT INP/OBS CARE
--- NOTE | 2023-11-20 19:07 | Billing Data ---
Date of Service November 20, 2023 Coding Level of Care Code 49483 INT INP/OBS CARE
[2023-11-20] MEDS: GABAPENTIN 400 MG CAP PO SCH (20:21)
[2023-11-20] MEDS: TAMSULOSIN HCL 0.4 MG CAP PO SCH (20:21)
[2023-11-20] MEDS: MONTELUKAST SODIUM 10 MG TABLET PO SCH (20:21)
[2023-11-20] MEDS: CHOLECALCIFEROL 25 MCG (1000 UNITS) TAB PO SCH (20:21)
[2023-11-20] MEDS ORDERED: CHOLECALCIFEROL 25 MCG (1000 UNITS) TAB PO SCH (21:00)
[2023-11-21 07:22] LABS: BUN Creatinine Ratio 22.9 (10-20); Calcium 8.7 mg/dl (8.6-10.3); Creatinine Clr Calc Pharmacy 57.5 ml/min; Est GFR (African American) 76.8 ml/min; Est GFR (Non-African American) 66.3 ml/min; Potassium 3.8 mmol/L (3.5-5.1)
--- NOTE | 2023-11-21 07:58 | XRay Report ---
XR chest 1V portable CLINICAL HISTORY: CHF TECHNIQUE: Single frontal radiograph of the chest was obtained. Comparison: Comparison is made to chest radiograph 11/16/2023 FINDINGS: Pacemaker defibrillator is seen. Right shoulder arthroplasty is seen. Cardiomegaly is noted. The aort ic arch is calcified. Lungs are underinflated but clear. No evidence of pleural effusion or pneumotho rax. IMPRESSION: Cardiomegaly and mild pulmonary edema. This has decreased from the prior radiograph. ACT 112: Negative or not required by law. Electronically signed by: Clayton Horn M.D. 11/21/2023 7:56 AM
[2023-11-21] MEDS: FLUTICASONE PROPIONATE NA SPR 16 GM BTL SCH (08:19)
[2023-11-21] MEDS: BUMETANIDE 1 MG TAB PO SCH (09:33)
--- NOTE | 2023-11-21 09:57 | Cardiology Progress Note ---
Date of Service November 21, 2023 Assessment & Plan (1) HFrEF (heart failure with reduced ejection fraction): (2) ICD (implantable cardioverter-defibrillator), biventricular, in situ: (3) Permanent atrial fibrillation: (4) Ischemic cardiomyopathy: (5) Nonocclusive coronary atherosclerosis of [place] coronary artery: Plan 83-year-old man with complex cardiac history who had subacute decompensation with increased dyspnea which appears to have been secondary to HFrEF/transient pulmonary edema. At this point there is no evidence of ongoing pneumonia, he is afebrile with a normal white count and his symptoms essentially resolved with diuresis. As noted, possibly started on ranolazine recently, but it's not clear that he received the medicine due to lack of insurance coverage and this is not a medication which would commonly be associated with CHF exacerbation (unless it c aused acute renal failure, which does not appear to be the case here). Etiology of his current decompensation is uncertain, no obvious dietary change or other major events, he may simply have limited cardiac reserve and "crossed the line" into heart failure. Continue his usual GDMT medications including carvedilol, Entresto, spironolactone, and Jardiance. Patient has failed higher doses in the past due to orthostatic hypotension. BP seems more adequate- may continue to revisit opportunities for titration as outpatient. His diuretic regimen at as an outpatient appears to be Bumex 1 mg daily. Can increase to 2 mg daily as needed for weight gain, SOB, edema. Plan to repeat BMP/mag/BNP as outpatient prior to follow up for close monitoring. Daily STANDING weights. Strict I&Os Low sodium diet Follow up with the heart failure program within 7 days. His coronary disease is nonocclusive, but he should be continued on atorvastatin and possibly aspirin (has been on this, but rivaroxaban may cover CAD indication). Follow up with the heart failure program. 11/28/23 at 1030. Admission and Anticipated Discharge Date Admission Date: November 20, 2023 Subjective Patient reports feeling improved today. His breathing is significantly improved however he is still requiring supplemental O2. He does not use O2 at baseline. He has no lower extremity edema. He continues to sleep with his head elevated. Denies cough, wheezing, chest pain, palpitations. Fluid balance is negative. Weight 187 lb per bed scale (10 lb difference from yesterday....?). Physical Exam Physical Exam: Only white male appears comfortable. BP normotensive. Pulse 80 bpm and irregular. Skin: no ecchymoses or generalized lesions. HEENT: unremarkable. Neck: JVP just above the clavicle at 90 degrees, no carotid bruits. Lungs: Moderately decreased breath sounds but generally clear. No accessory muscle use. Cardiac: regular rhythm, normal S1-2, 2/6 apical holosystolic murmur rating to the axilla, no diastolic murmur. Abdomen: benign. Extremities: no significant edema, pulses intact. Neurologic: normal affect and conversation, nonfocal. Results & Data Vital Signs (Past 12 Hours) Vital Signs Temp Pulse Pulse Resp BP Pulse Ox O2 Del Method 11/21/23 07:30 87 11/21/23 07:25 98.1 F 82 18 122/73 93 Nasal Cannula 11/21/23 07:22 84 18 93 Nasal Cannula 11/21/23 04:33 11/21/23 02:38 78 20 90/67 L 94 Nasal Cannula 11/20/23 23:12 79 20 96/62 L 91 Nasal Cannula O2 Del Method O2 Flow Rate O2 Flow Rate 11/21/23 07:30 11/21/23 07:25 3.0 11/21/23 07:22 2 11/21/23 04:33 Nasal Cannula 2 11/21/23 02:38 2 11/20/23 23:12 2 PG Care Time/CCT Total # of Minutes Spent Total Time Spent with Patient: Total time spent is greater than 50% in coordination of care (as documented) at patient's floor/unit and/or counseling patient: Coding Level of Care Code 32930 SUB INP/OBS CARE 3/50MIN Diagnoses HFrEF (heart failure with reduced ejection fraction) I50.20 ICD (implantable cardioverter-defibrillator), biventricular, in situ Z95.810 Permanent atrial fibrillation I48.21 Ischemic cardiomyopathy I25.5 Nonocclusive coronary atherosclerosis of [place] coronary artery I25.10
[2023-11-21] MEDS: EMPAGLIFLOZIN 10 MG TAB PO SCH (16:27)
[2023-11-21] MEDS: ATORVASTATIN 40 MG TAB PO SCH (16:27)
--- NOTE | 2023-11-21 17:41 | Hospitalist Progress Note ---
Date of Service November 21, 2023 Assessment & Plan (1) Acute hypoxic respiratory failure: Plan: Acute hypoxic and hypercapnic respiratory failure requiring BiPAP on admission- now completely resolved, weaned to room air Secondary to acute on chronic HFrEF Initial CXR concerning for RLL consolidation/aspiration PNA but this is significantly improved after IV diuretics overnight on repeat chest [id number] ruled out. Leukocytosis likely stress response to severe r espiratory failure and procalcitonin negative. Lactate likely elevated due to hypoxia Discontinue antibiotics, continue to follow blood cultures but no growth to date and no fevers Will have patient walk and determine O2 needs with exertion before discharge (2) HFrEF (heart failure with reduced ejection fraction): Plan: Nonischemic, acute on chronic HFrEF-with evidence of pulmonary edema on chest x- ray, elevated BNP, and respiratory failure Echo 10/2023 w/ EF of 25-30%, global hypokinesis, moderate to severe MR, moderate TR Follows with CHF clinic Patient chronically on Bumex 1 mg PO qAM, denies worsening LE edema but has had increasing abdominal bloating, some weight gain. PCP recently discontinued his spironolactone due to low blood pressures that were symptomatic S/p Lasix 40 mg IV x 2 and much improved now Resume home Bumex 1 mg p.o. daily Given hypotension previously with spironolactone, will lower dose to 12.5 Mg once daily Continue Entresto and resume home Jardiance Daily weights, I's and O's add fluid restriction, low-sodium diet (3) Paroxysmal atrial fibrillation: Plan: Permanent underlying A-fib rhythm with paced rhythm on telemetry Continue Xarelto for anticoagulation Continue Amiodarone 200 mg PO daily which he is on for excessive PVCs Continue carvedilol (4) Diabetes mellitus: Plan: Hemoglobin A1c 6.9%, well-controlled Restart home Jardiance Holding home alogliptin, Januvia, metformin Accu-Cheks, supplemental insulin as needed (5) Gastroesophageal reflux disease: Plan: Dexilant needs to be brought in from home-he has a history of allergies to other PPIs Continue famotidine (6) Hyperlipidemia: Plan: Resume home statin-unclear why this was held on admission (7) CAD (coronary artery disease): Plan: Nonocclusive multivessel disease found on cardiac catheterization 10/08/2022 He does report having some chest pressure with exertion in the last few weeks prior to admission that would resolve with rest, likely related to heart failure. Troponin negative on arrival, ECG with A-fib and pacing, no ischemic changes Appreciate cardiology consultation Continue aspirin, resume statin Continue carvedilol, isosorbide He was started on Ranexa recently by cardiology but was unable to afford it and is not taking it (8) Hypothyroidism: Plan: TSH recently normal at 2.2 Continue home levothyroxine (9) HTN (hypertension): Plan: Blood pressures have been low as of late due to medications for heart failure Continue carvedilol, resume bumetanide, lower dose of spironolactone to 12.5 mg daily, and continue Entresto (10) Lumbar spinal stenosis: Plan: Presumably why he is on diclofenac although would caution use with this with heart disease Plan DVT prophylaxis-Xarelto Disposition-continued stay on telemetry, improving, likely discharged home tomorrow. May need a two-step walk test prior to discharge Admission and Anticipated Discharge Date Admission Date: November 20, 2023 Anticipated date of discharge: 11/22/23 Subjective Patient feels much improved today, weaned off oxygen. Has not walked around much. Telemetry with underlying atrial fibrillation, paced rhythm, PVCs, rates in the 80s Physical Exam Constitutional: WD/WN, vitals as above Respiratory: normal respiratory effort, lungs clear to auscultation Cardiovascular: RRR, no murmur, no edema Chest (Breasts): Chest: normal inspection of chest Gastrointestinal (Abdomen): normal bowel sounds, soft, nontender, no hepatosplenomegaly Musculoskeletal: Extremities: extremities normal to inspection; no cyanosis and no clubbing Skin: no rashes, warm and dry Neurologic: moves all extremities and awake; no focal motor deficits Psychiatric: A+Ox3, euthymic affect Results & Data Results & Data Vital Signs (Past 12 Hours) Vital Signs Temp Pulse Pulse Resp BP Pulse Ox O2 Del Method 11/21/23 15:04 36.8 C 67 18 109/74 94 Room Air 11/21/23 14:30 86 16 95 Room Air 11/21/23 11:24 86 18 94 Nasal Cannula 11/21/23 10:59 36.9 C 84 18 108/62 93 Nasal Cannula 11/21/23 07:30 87 11/21/23 07:25 36.7 C 82 18 122/73 93 Nasal Cannula 11/21/23 07:22 84 18 93 Nasal Cannula O2 Flow Rate 11/21/23 15:04 11/21/23 14:30 11/21/23 11:24 2 11/21/23 10:59 2.0 11/21/23 07:30 11/21/23 07:25 3.0 11/21/23 07:22 2 Laboratory Results CBC, BMP, ABG, lactate reviewed Diagnostic Findings Chest x-ray image personally reviewed-improved pulmonary edema PG Care Time/CCT Total # of Minutes Spent Total Time Spent with Patient: Total time spent is greater than 50% in coordination of care (as documented) at patient's floor/unit and/or counseling patient: Coding Level of Care Code 87870 SUB INP/OBS CARE 3/50MIN Diagnoses Acute hypoxic respiratory failure J96.01 HFrEF (heart failure with reduced ejection fraction) I50.20 Paroxysmal atrial fibrillation I48.0 Diabetes mellitus E11.9 Gastroesophageal reflux disease K21.9 Mixed hyperlipidemia E78.2 Hyperlipidemia type: mixed hyperlipidemia Coronary artery disease involving [place] coronary artery of [place] heart without angina pectoris I25.10 Associated angina: without angina Coronary Disease-Associated Artery/Lesion type: [place] artery [place] vs. transplanted heart: [place] heart Hypothyroidism E03.9 Primary hypertension I10 Hypertension type: primary hypertension Lumbar spinal stenosis M48.061 (6) Hyperlipidemia Hyperlipidemia type: mixed hyperlipidemia Qualified Code(s): E78.2 - Mixed hyperlipidemia (7) CAD (coronary artery disease) Associated angina: without angina Coronary Disease-Associated Artery/Lesion type: [place] artery [place] vs. transplanted heart: [place] heart Qualified Code(s): I25.10 - Atherosclerotic heart disease of [place] coronary artery without angina pectoris (9) HTN (hypertension) Hypertension type: primary hypertension Qualified Code(s): I10 - Essential (primary) hypertension
[2023-11-22 06:57] LABS: BUN Creatinine Ratio 26.1 (10-20); Calcium 8.8 mg/dl (8.6-10.3); Creatinine Clr Calc Pharmacy 65.1 ml/min; Est GFR (African American) 90.1 ml/min; Est GFR (Non-African American) 77.7 ml/min; Potassium 3.9 mmol/L (3.5-5.1)
[2023-11-22] MEDS: SPIRONOLACTONE 12.5 MG TAB PO SCH (08:35)
--- NOTE | 2023-11-22 13:44 | Discharge Summary ---
Discharge Summary Date of Service November 22, 2023 Notes For Next Care Provider Medication Changes From Visit Added back on aldactone 12.5mg po qAM Increase Bumex to 2mg daily on days of weight gain > 2 lbs Admission HPI Per Admitting Provider Abhilash is an 83M with PMH of A Fib on Xarelto, CAD w/ ICD, cardiomyopathy, pulmonary nodules, hiatal hernia, LBP, orthostasis, DM2, GERD, HLD, HTN, and hypothyroidism who presents for evaluation of dyspnea. ED Course: Albuterol, Furosemide, Levofloxacin Patient notes that over the last 2 weeks he has had increasing upper respiratory congestion and that over the last few days he has had some congestion in his chest. He notes that today was the worst. He denies any chest pains or pleuritic pains. He denies fevers or chills. He has not experienced any headaches or lightheadedness. Patient denies any increasing lower extremity edema, claudication, or orthopnea. He notes that he is active at home at baseline and enjoys doing activities with his muslim. He notes that he recently started taking a new medication for heart rate control (Amiodarone) and that his symptoms worsened after starting it, but that the congestion had already begun before starting the new medication. Patient notes that at present he is not feeling short of breath and is much improved from presentation. Patient lives at home with his who will be coming to visit. He is not on oxygen support at home. Principal Dx & Hospital Course #1 = Principal Diagnosis (1) Acute hypoxic respiratory failure: Acute hypoxic and hypercapnic respiratory failure requiring BiPAP on admission- now completely resolved, weaned to room air Secondary to acute on chronic HFrEF Initial CXR concerning for RLL consolidation/aspiration PNA but this is significantly improved after IV diuretics overnight on repeat chest [id number] ruled out. Leukocytosis likely stress response to severe respiratory failure and procalcitonin negative. Lactate likely elevated due to hypoxia Discontinued antibiotics, continued to follow blood cultures but no growth to date and no fevers Passed 2 step walk test prior to discharge, no need for supplemental O2 (2) HFrEF (heart failure with reduced ejection fraction): Nonischemic, acute on chronic HFrEF-with evidence of pulmonary edema on chest x- ray, elevated BNP, and respiratory failure Echo 10/2023 w/ EF of 25-30%, global hypokinesis, moderate to severe MR, moderate TR Follows with CHF clinic Patient chronically on Bumex 1 mg PO qAM, denies worsening LE edema but has had increasing abdominal bloating, some weight gain. PCP recently discontinued his spironolactone due to low blood pressures that were symptomatic S/p Lasix 40 mg IV x 2 and much improved now Continue home Bumex 1 mg p.o. daily and take 2mg daily for weight gain > 2 lbs/24 hrs Given hypotension previously with spironolactone, lowered dose to 12.5 Mg once daily--> BPs here are soft, orthostatics negative and no lightheadedness Continue Entresto and Jardiance Daily weights, fluid restriction, low-sodium diet encouraged at home (3) Paroxysmal atrial fibrillation: Permanent underlying A-fib rhythm with paced rhythm on telemetry Continue Xarelto for anticoagulation Continue Amiodarone 200 mg PO daily which he is on for excessive PVCs Continue carvedilol (4) Diabetes mellitus: Hemoglobin A1c 6.9%, well-controlled continue home Jardiance, alogliptin, Januvia, metformin (5) Gastroesophageal reflux disease: continue Dexilant and famotidine (6) Hyperlipidemia: continue statin (7) CAD (coronary artery disease): Nonocclusive multivessel disease found on cardiac catheterization 10/08/2022 He does report having some chest pressure with exertion in the last few weeks prior to admission that would resolve with rest, likely related to heart failure. Troponin negative on arrival, ECG with A-fib and pacing, no ischemic changes Appreciate cardiology consultation Continue aspirin, statin, carvedilol, isosorbide He was started on Ranexa recently by cardiology but was unable to afford it and is not taking it (8) Hypothyroidism: TSH recently normal at 2.2 Continue home levothyroxine (9) HTN (hypertension): Blood pressures have been low as of late due to medications for heart failure Continue carvedilol, bumetanide, lowered dose of spironolactone to 12.5 mg daily, and continue Entresto (10) Lumbar spinal stenosis: Presumably why he is on diclofenac although would caution use with this with heart disease Plan DVT prophylaxis-Xarelto Disposition-dc to home, much improved Discharge Exam Constitutional WD/WN, vitals as above Respiratory normal respiratory effort, lungs clear to auscultation Cardiovascular RRR, no murmur, no edema Chest (Breasts) Chest: normal inspection of chest Gastrointestinal (Abdomen) normal bowel sounds, soft, nontender, no hepatosplenomegaly Musculoskeletal Extremities: extremities normal to inspection; no cyanosis and no clubbing Skin no rashes, warm and dry Neurologic moves all extremities and awake; no focal motor deficits Psychiatric A+Ox3, euthymic affect Updated Medication List Medication Instructions Recorded Confirmed Type cholecalciferol (vitamin D3) 25 1 tab PO QPM 07/25/18 11/19/23 History mcg (1,000 unit) tablet (Vitamin D3) lysine 1,000 mg tablet 1,000 mg PO BID 07/25/18 11/19/23 History montelukast 10 mg tablet 10 mg PO PM 07/25/18 11/19/23 History multivitamin 1 tab PO QAM 07/25/18 11/19/23 History diclofenac sodium 75 mg 75 mg PO QAM #30 tabs 05/31/19 11/19/23 History tablet,delayed release omega-3 fatty acids 1,000 mg 1,000 mg PO QAM 11/03/20 11/19/23 History capsule (Fish Oil Concentrate) alogliptin 25 mg tablet 25 mg PO QAM 02/18/21 11/19/23 History sitagliptin phosphate 100 mg 100 mg PO QAM 02/18/21 11/19/23 History tablet (Januvia) rivaroxaban 20 mg tablet (Xarelto) 20 mg PO QPM #90 tabs 09/08/21 11/19/23 Rx metformin 500 mg tablet,extended 500 mg PO DAILY #30 tabs 01/29/22 11/19/23 Rx release 24 hr atorvastatin 40 mg tablet 40 mg PO DAILY #90 tabs 11/18/22 11/19/23 Rx carvedilol 12.5 mg tablet 12.5 mg PO BID #180 tabs 04/04/23 11/19/23 Rx sacubitril 49 mg-valsartan 51 mg 0.5 tab PO BID 05/11/23 11/19/23 History tablet (Entresto) gabapentin 400 mg capsule 400 mg PO HS 06/07/23 11/19/23 History finasteride 5 mg tablet 5 mg PO DAILY #90 tabs 06/16/23 11/19/23 Rx tamsulosin 0.4 mg capsule 0.4 mg PO HS #90 caps 06/16/23 11/19/23 Rx amiodarone 200 mg tablet 200 mg PO DAILY #90 tabs 11/03/23 11/19/23 Rx aspirin 81 mg tablet,delayed 81 mg PO QAM 11/19/23 11/19/23 History release (Jamila Low Dose Aspirin) dexlansoprazole 30 mg 30 mg PO QAM 11/19/23 11/19/23 History capsule,biphase delayed release (Dexilant) empagliflozin 10 mg tablet 10 mg PO QAM 11/19/23 11/19/23 History (Jardiance) famotidine 40 mg tablet 40 mg PO QAM 11/19/23 11/19/23 History gabapentin 300 mg capsule 300 mg PO .DAILY IN AFTERNOON 11/19/23 11/19/23 History isosorbide mononitrate 30 mg 30 mg PO QAM 11/19/23 11/19/23 History tablet,extended release 24 hr levothyroxine 50 mcg tablet 50 mcg PO DAILYBB 11/19/23 11/19/23 History potassium chloride 20 mEq 20 meq PO QAM 11/19/23 11/19/23 History tablet,extended release bumetanide 1 mg tablet 1 mg PO QAM #60 tabs 11/22/23 11/19/23 Rx spironolactone 25 mg tablet 12.5 mg (1/2 x 25 mg) PO DAILY #90 11/22/23 11/19/23 Rx tabs Hospital Stay Data Consultations 11/20/23 01:30 ED Decision to Admit Stat 11/20/23 09:12 Consult Cardiology Routine Pending Results Patient Have Any Pending Studies at Discharge: No Discharge Instructions Given to Patient (Per Discharging Provider) You were admitted with low oxygen levels due to congestive heart failure. You were given diuretics through the IV and had improvement. You were weaned off oxygen and do not need this at home. Your spironolactone was restarted at half the dose which is 12.5mg once daily. If your weight goes up from one day to the next by 2-3 lbs, you should take an extra tablet of bumetanide for a total of 2mg daily for that day. Total Time Total Time Spent Total Time Spent (In Minutes): 35 min Coding Level of Care Code 50511 INP/OBS DISCH >30 MIN Diagnoses Acute hypoxic respiratory failure J96.01 HFrEF (heart failure with reduced ejection fraction) I50.20 Paroxysmal atrial fibrillation I48.0 Diabetes mellitus E11.9 Gastroesophageal reflux disease K21.9 Mixed hyperlipidemia E78.2 Hyperlipidemia type: mixed hyperlipidemia Coronary artery disease involving [place] coronary artery of [place] heart without angina pectoris I25.10 Coronary Disease-Associated Artery/Lesion type: [place] artery [place] vs. transplanted heart: [place] heart Associated angina: without angina Hypothyroidism E03.9 Primary hypertension I10 Hypertension type: primary hypertension Lumbar spinal stenosis M48.061
== END 2023-11-22 14:56 | disposition home or self-care (01) | DRG 291 ==
LOC: ED 22:55 → 2E 11-20 03:10 → SUATTDRO 11-20 03:10 → 2E 11-20 04:02